=== PATIENT | male | born 1940 | race Caucasian/White ===

== ENCOUNTER 2018-04-04 20:21 | Inpatient (IN) | payer MEDICARE ==
[~2018-04-04] VITALS: Ht 175.3 cm; Wt 83.0 kg
[2018-04-04 20:57] VITALS: BP 166/92; PULSE 100; RESP 20; TEMP 98.1; O2SAT 98
[2018-04-04 21:00] VITALS: PULSE 100
[2018-04-04] MEDS ORDERED: MAGNESIUM HYDROXIDE SUSP 30 ML CUP PO PRN (21:15)
[2018-04-04] MEDS ORDERED: ONDANSETRON HCL 4 MG/2 ML VIAL IV PUSH PRN (21:15)
[2018-04-04] MEDS ORDERED: ACETAMINOPHEN/HYDROcodone 325 MG/5 MG TAB PO PRN (21:45)
[2018-04-04] MEDS ORDERED: ACETAMINOPHEN 325 MG TAB PO PRN (21:45)
[2018-04-04 22:00] VITALS: PULSE 96
[2018-04-04] MEDS ORDERED: [UNRECOGNIZED DRUG - OTHER] INH SCH (22:00)
[2018-04-04 22:34] VITALS: O2SAT 98
[2018-04-04] MEDS: methylPREDNISolone SOD SUCC 40 MG/1 ML VIAL IV PUSH SCH (22:42)
[2018-04-04 23:00] VITALS: PULSE 90
[2018-04-04 23:23] VITALS: BP 150/90; PULSE 95; RESP 20; TEMP 98.1; O2SAT 99
[2018-04-04] MEDS: LEVOFLOXACIN 500 MG PREMIX INJ 100 ML IV SCH (23:57)
[2018-04-05] VITALS (12 sets, daily range): BP systolic 91–177; BP diastolic 56–96; PULSE 60–102; RESP 16–20; TEMP 97.2–98.9; O2SAT 96–100
[2018-04-05] MEDS: CEFEPIME 2000 MG/NS 100 ML IV SCH ×4 (01:29→09:38)
[2018-04-05 08:11] LABS: AUTOMATED NEUTROPHIL # 15.8 TH/MM3 (1.8-7.7); BASOPHIL # 0.1 TH/MM3 (0-0.2); BASOPHIL % 0.6 % (0.0-2.0); EOSINOPHIL # 0.1 TH/MM3 (0-0.4); EOSINOPHIL % 0.6 % (0.0-4.0); HEMATOCRIT 34.8 % (39.0-51.0); HEMOGLOBIN 11.5 GM/DL (13.0-17.0); LYMPH % 6.4 % (9.0-44.0); LYMPHOCYTE # 1.2 TH/MM3 (1.0-4.8); MEAN CELL VOLUME 93.4 FL (80.0-100.0); MEAN CORPUSCULAR HEMOGLOBIN 30.9 PG (27.0-34.0); MEAN CORPUSCULAR HGB CONC 33.1 % (32.0-36.0); MEAN PLATELET VOLUME 8.1 FL (7.0-11.0); MONO % 5.2 % (0.0-8.0); MONOCYTE # 0.9 TH/MM3 (0-0.9); NEUT % 87.2 % (16.0-70.0); PLATELET COUNT 377 TH/MM3 (150-450); RED BLOOD COUNT 3.72 MIL/MM3 (4.50-5.90); RED CELL DISTRIBUTION WIDTH 13.3 % (11.6-17.2); WHITE BLOOD COUNT 18.1 TH/MM3 (4.0-11.0)
[2018-04-05 08:11] LABS: PROTHROMBIN TIME - PATIENT 10.5 SEC (9.8-11.6)
[2018-04-05 08:18] LABS: ALBUMIN 2.5 GM/DL (3.4-5.0); ALT (GPT) 28 U/L (12-78); AST (GOT) 20 U/L (15-37); BICARBONATE 34.6 MEQ/L (21.0-32.0); CALCIUM 8.8 MG/DL (8.5-10.1); CHLORIDE 96 MEQ/L (98-107); CREATININE 0.62 MG/DL (0.60-1.30); GLOMERULAR FILTRATION RATE 126 ML/MIN (>89); GLUCOSE,RANDOM 79 MG/DL (74-106); SODIUM (NA) 138 MEQ/L (136-145)
[2018-04-05 08:20] LABS: ALKALINE PHOSPHATASE 114 U/L (45-117); TOTAL BILIRUBIN ADULT 0.2 MG/DL (0.2-1.0); TOTAL PROTEIN 6.9 GM/DL (6.4-8.2)
[2018-04-05 08:34] LABS: BLOOD UREA NITROGEN 15 MG/DL (7-18)
[2018-04-05] MEDS ORDERED: PANTOPRAZOLE SOD 40 MG DELAYED RELEASE TAB PO SCH (09:00)
[2018-04-05] MEDS: methylPREDNISolone SOD SUCC 40 MG/1 ML VIAL IV PUSH SCH ×2 (09:38→21:38)
[2018-04-05] MEDS: DOCUSATE SODIUM 100 MG CAP PO SCH ×2 (09:38→21:39)
[2018-04-05] MEDS: RESP: ALBUTEROL 2.5 MG/IPRATROPIUM 0.5 MG NEB (SCH) NEB ×2 (09:48→13:17)
[2018-04-05] MEDS: RESP: BUDESONIDE 0.5 MG/2 ML NEB NEB SCH ×2 (09:48→22:07)
--- NOTE | 2018-04-05 09:56 | RADRPT ---
EXAM DATE: 04/05/2018 9:27 AM EDT AGE/SEX: 77 years / Male INDICATIONS: Short of breath CLINICAL DATA: This is the patient's initial encounter. Patient reports that signs and symptoms have been present for 2 days and indicates a pain score of 0/10. MEDICAL/SURGICAL HISTORY: . Pleural effusion Cholecystectomy. left lobectomy COMPARISON: No prior [facility] exams available for comparison. FINDINGS: There are patchy parenchymal infiltrates in both lung hernandes, right greater than left. The re appears to be a right-sided pleural effusion. No significant left-sided pleural effusion. The hear t size is mildly enlarged. There is evidence of previous thoracic surgery especially on the left side . There is a left-sided PICC line in place. There is no pneumothorax. The bony structures are grossly intact. CONCLUSION: 1. There are patchy parenchymal infiltrates bilaterally, right greater than left. 2. There appears to be a moderate right-sided pleural effusion. Electronically signed by: Demian Gale MD 04/05/2018 9:55 AM EDT
[2018-04-05] MEDS ORDERED: PRED20 PO (10:51)
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
[2018-04-05] MEDS ORDERED: VECURONIUM BROMIDE 20 MG VIAL IV ONE (12:00)
[2018-04-05] MEDS ORDERED: LIDOCAINE HCL 1% PF 5 ML AMPULE OTHER ONE (12:00)
[2018-04-05] MEDS ORDERED: SUCCINYLCHOLINE CHLORIDE 200 MG/10 ML VIAL IV ONE (12:00)
[2018-04-05] MEDS ORDERED: MAGNESIUM SULFATE 1 GM/2 ML VIAL IV ONE (12:00)
[2018-04-05] MEDS ORDERED: ONDANSETRON HCL 4 MG/2 ML VIAL IV ONE (12:00)
[2018-04-05] MEDS ORDERED: PHENYLEPH/NS 1000 MCG/10 ML SYR IV ONE (12:00)
[2018-04-05] MEDS ORDERED: LIDOCAINE HCL 1% PF 5 ML SYRINGE OTHER ONE (12:00)
[2018-04-05] MEDS ORDERED: PHENYLEPHRINE HCL 10 MG/ML VIAL IV ONE (12:00)
[2018-04-05] MEDS ORDERED: SODIUM CHLOR 0.9% 250 ML INJ 250 ML IV ONE (12:00)
[2018-04-05] MEDS ORDERED: NORMOSOL R INJ 1,000 ML IV ONE (12:00)
[2018-04-05] MEDS ORDERED: HEPARIN SODIUM - SQ 10,000 UNITS/ML VIAL OTHER ONE (12:00)
[2018-04-05] MEDS ORDERED: SODIUM CHLORIDE 0.9% 20 ML VIAL IV ONE (12:00)
[2018-04-05] MEDS ORDERED: PROPOFOL 200 MG/20 ML AMP IV ONE (12:00)
[2018-04-05] MEDS ORDERED: ROCURONIUM INJ 50 MG/5 ML SYRINGE IV PUSH ONE (12:00)
[2018-04-05] MEDS ORDERED: SODIUM CHLORID 0.9% 500 ML INJ 500 ML IV ONE (12:00)
[2018-04-05] MEDS ORDERED: LACTATED RINGER'S 1000 ML IV PRN (12:15)
[2018-04-05] MEDS ORDERED: CHLORHEXIDINE GLUCONATE 2 % 1 PACK (2 CLOTHS) TOPICAL PRN (12:15)
[2018-04-05] MEDS ORDERED: POVIDONE IODINE 5% (ANTISEPSIS KIT) 4 APPLICATIONS EACH NARE PRN (12:15)
[2018-04-05] MEDS ORDERED: SODIUM CHLORID 0.9% 500 ML IV PRN (12:15)
[2018-04-05] MEDS ORDERED: ONDANSETRON ODT 4 MG TAB PO PRN (12:15)
[2018-04-05] MEDS ORDERED: METOPROLOL TARTRATE 25 MG TAB PO PRN (12:15)
[2018-04-05] MEDS ORDERED: SUGAMMADEX SODIUM 200 MG/2 ML VIAL IV PUSH ONE ×2 (12:54→15:59)
[2018-04-05] MEDS ORDERED: ACETAMINOPHEN 1000 MG/100 ML 100 ML IV ONE (12:55)
[2018-04-05] MEDS ORDERED: HYDROCORTISONE SOD SUCCINATE 100 MG VIAL ONE (13:08)
[2018-04-05] MEDS ORDERED: VANCOMYCIN HCL 1000 MG VIAL ONE (13:54)
[2018-04-05] MEDS ORDERED: SODIUM CHLOR 0.9% 250 ML INJ 250 ML ONE (13:55)
[2018-04-05] MEDS ORDERED: BUPIVACAINE LIPOSO PF 1.3% INJ 20 ML, DEXAMETHASONE INJ 4 MG, MORPHINE INJ 8 MG in SODI... IRRIGATION ONE ×8 (14:00)
[2018-04-05] MEDS ORDERED: ACETAMINOPHEN 325 MG TAB PO PRN (16:00)
[2018-04-05] MEDS ORDERED: ONDANSETRON HCL 4 MG/2 ML VIAL IV PUSH PRN (16:00)
[2018-04-05] MEDS ORDERED: SODIUM CHLORIDE 0.9% FLUSH 10 ML FLUSH IV FLUSH PRN (16:00)
[2018-04-05] MEDS: RESP: ALBUTEROL 2.5 MG/3 ML NEB (SCH) NEB ×2 (16:00→22:01)
[2018-04-05] MEDS ORDERED: MORPHINE SULFATE 30 MG/30 ML PCA IV SCH (16:00)
[2018-04-05] MEDS ORDERED: NALOXONE HCL 0.4 MG/ML AMP IV PUSH PRN (16:00)
[2018-04-05] MEDS ORDERED: MAGNESIUM HYDROXIDE SUSP 30 ML CUP PO PRN (16:00)
[2018-04-05] MEDS ORDERED: Post-op Orders (for Pharmacy) OTHER ONE (16:00)
--- NOTE | 2018-04-05 16:02 | EKG ---
Date Performed: 04/05/2018 Time Performed: 12:11:26 PTAGE: 77 years EKG: SINUS TACHYCARDIA WITH OCCASIONAL VENTRICULAR PREMATURE COMPLEXES MODERATE ST DEPRESSION AB NORMAL ECG NO PREVIOUS TRACING DOCTOR: Hollis Jackson Interpretating Date/Time 04/05/2018 16:00:35
[2018-04-05] MEDS ORDERED: RESP: ALBUTEROL CONC 2.5 MG/0.5 ML NEB ONE (16:14)
--- NOTE | 2018-04-05 16:55 | PD.OP ---
cc: Seven Murdock MD; Theresa Lau MD Operative Report Date of Surgery: April 05, 2018 Preoperative Diagnosis: Postoperative Diagnosis: Procedure: 1. Right Muscle-sparing Posterolateral Thoracotomy 2. Localized Decortication 3. Biopsy of Peel 4. Intercostal Nerve Block Surgeon: Seven Murdock Ship Officer(s): Dennise Leone Operation and Findings: PREOPERATIVE DIAGNOSIS 1. Right Organized Empyema 2. Pulmonary Insufficiency 3. Pneumonia 4. Rheumatoid arthritis POSTOPERATIVE DIAGNOSIS 1. Right Malignant Empyema 2. Severe Pulmonary Insufficiency PROCEDURES 1. Right Muscle-sparing Posterolateral Thoracotomy 2. Localized Decortication 3. Biopsy of Peel 4. Intercostal Nerve Block SURGEON Seven Murdock MD LINE CLEARANCE FOREMAN AFSHIN Chanel ANESTHESIA General endotracheal. DECORATING MACHINE TENDER JOE Han MD OPERATIVE TIME Please see record. COMPLICATIONS None. INDICATION FOR PROCEDURE The patient is a 77 yo gentleman with right empyema presenting for surgical correction of above pathology. DESCRIPTION OF PROCEDURE The patient was brought to the operating suite and placed in supine position. Following satisfactory induction of general double-lumen endotracheal anesthesia , the patient was placed in the left lateral decubitus position. The right chest and surrounding area was then prepped and draped in the usual sterile fashion. A standard muscle-sparing posterolateral thoracotomy was performed and the serratus anterior muscle spared. The pleural space was entered. Small amount of clear fluid was encountered which was sent for analysis. Exploration of the chest revealed a stage IV Empyema with a thick peel encasing the lung as well as the parietal pleura. The peel was very densely adherent to the visceral pleura and the underlying lung. Additional loculated abscess cavities were also identified within the thoracic cavity. All loculations and fluid pockets were evacuated. Localized decortication was performed and the peel sent for histological and microbiological analysis. 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 At this point, it was decided to cease any further attempts at decorticating a malignant empyema for fear of creating underlying lung injury and bronchopleural fistulae. The closure was undertaken. A 32-Citizen [place] chest tube was placed. Intercostal nerve block was performed at the level of the incision and 3 rib spaces above and below using Exparel with Decadron solution. The pericostal space was approximated with interrupted #1 Vicryl sutures in a pericostal fashion. The serratus and Latissimus dorsi were closed with running 0-Vicryl and the remaining wounds closed with 3-0, and 4-0 Monocryl. The patient tolerated the procedure well and postoperatively went to the PACU in stable condition. Seven Murdock MD April 05, 2018 16:55
[2018-04-05] MEDS ORDERED: PROPOFOL 1000 MG/100 ML INJ 100 ML ONE (16:56)
[2018-04-05] MEDS ORDERED: PHENYTOIN SODIUM 100 MG CAP PO SCH (17:00)
[2018-04-05] MEDS: KETOROLAC TROMETHAMINE 30 MG/ML (IVP) VIAL IV PUSH SCH ×2 (17:00→23:08)
[2018-04-05] MEDS ORDERED: DO NOT ADM ANY ANTICOAGULANT DRUGS PRN (17:30)
[2018-04-05] MEDS ORDERED: *morphine SULFATE 8 MG/ML PERIprocedure ONLY ONE (17:34)
[2018-04-05] MEDS ORDERED: PROPOFOL 1000 MG/100 ML IV PRN (17:45)
[2018-04-05] MEDS ORDERED: TERBUTALINE INJ 1 MG/ML AMP SQ PRN (18:00)
--- NOTE | 2018-04-05 18:50 | RADRPT ---
EXAM DATE: 04/05/2018 6:43 PM EDT AGE/SEX: 77 years / Male INDICATIONS: Status post thoracotomy. CLINICAL DATA: This is the patient's initial encounter. Patient reports that signs and symptoms have been present for 1 day and indicates a pain score of Nonresponsive. MEDICAL/SURGICAL HISTORY: Non-responsive. Non-responsive. COMPARISON: No prior [facility] exams available for comparison. FINDINGS: The ET tube is 2.7 cm from the malcom. There is a PICC line placed from the left arm with the tip overlying the right atrium. There is a right chest tube in place. There is a moderate right p leural effusion. The heart size is enlarged. This increased density at the bases bilaterally. Clips a re seen in the left hilar region. CONCLUSION: Clips in the left hilar region. 1. Bibasilar areas of consolidation or atelectasis. 2. Moderate right pleural effusion with a right-sided chest tube in place. A pneumothorax is not see n. 3. ET tube in good position. Electronically signed by: Hermilo Moreira MD 04/05/2018 6:49 PM EDT
[2018-04-05] MEDS: PHENYLEPHRINE 40 MG in D5W 500 ML IV PRN (19:00)
--- NOTE | 2018-04-05 19:38 | PD.CONS ---
HPI Service Critical Care Medicine Consult Requested By Primary Care Physician Non-Staff History of Present Illness 77-year-old gentleman with history of rheumatoid arthritis, COPD, seizure disorder, recurrent pneumonias and now organized empyema on the right side underwent posterolateral thoracotomy and localized decortication with biopsy of peel by Dr. Murdock. Postprocedure patient remains intubated and is admitted to critical care unit with postprocedure respiratory failure. The routine critical care consult was placed for ventilatory management. Review of Systems ROS Unable to obtain patient sedated and intubated Past Family Social History Allergies: Coded Allergies: No Known Allergies (Unverified , 04/04/18) Past Medical History Rheumatoid arthritis COPD on home O2 Recurrent pneumonias Seizure disorder DVT GERD Past Surgical History Left upper lobectomy in 2005 in [place], [place]. Cholecystectomy Reported Medications Reported Meds & Active Scripts Active Reported Prednisone 20 Mg Tab 20 Mg PO DAILY Active Ordered Medications Current Medications Medications (Trade) Dose Ordered Sig/Shahrzad Route PRN Reason Start Time Stop Time Status Last Admin Dose Admin Docusate Sodium (Colace) 100 mg BID PO 04/05/18 09:00 04/05/18 09:38 Acetaminophen (Tylenol) 650 mg Q6H PRN PO PAIN SCALE 1 TO 2 04/04/18 21:45 Acetaminophen/ Hydrocodone Bitart (Somers 5-325 Mg) 1 tab Q4H PRN PO PAIN SCALE 3 TO 5 04/04/18 21:45 Budesonide (Pulmicort Respule Neb) 0.5 mg Q12HR NEB NEB 04/05/18 08:00 04/05/18 09:48 Methylprednisolone Sodium Succinate (SoluMEDROL INJ) 40 mg Q12H IV PUSH 04/04/18 22:00 04/05/18 09:38 Phenytoin (Dilantin) 200 mg DAILY@1700 PO 04/05/18 17:00 Patient Own Medication PT OWN MED: BROV... Q12H INH 04/04/18 22:00 Future Hold Cefepime HCl 2000 mg/Sodium Chloride 100 ml @ 200 mls/hr Q8H IV 04/05/18 00:00 04/06/18 00:00 04/05/18 09:38 Levofloxacin/ Dextrose 100 ml @ 100 mls/hr Q24H IV 04/04/18 23:00 5/22/18 23:59 04/04/18 23:57 Ondansetron HCl (Zofran Odt) 4 mg Q6H PRN PO NAUSEA OR VOMITING 04/05/18 12:15 Lactated Ringer's 1,000 ml @ 30 mls/hr Q24H PRN IV SEE LABEL COMMENTS 04/05/18 12:15 04/08/18 12:14 Sodium Chloride 500 ml @ 30 mls/hr [id number] PRN IV SEE LABEL COMMENTS 04/05/18 12:15 04/08/18 12:14 Metoprolol Tartrate (Lopressor) 25 mg CABLE TELEVISION ACCESS COORDINATOR PRN PO SEE LABEL COMMENTS 04/05/18 12:15 04/08/18 12:14 Povidone Iodine (Betadine 5% Antisepsis Kit) 1 applic CABLE TELEVISION ACCESS COORDINATOR PRN EACH NARE SEE LABEL COMMENTS 04/05/18 12:15 04/08/18 12:14 Chlorhexidine Gluconate (Chlorhexidine 2% Cloth) 3 pack CABLE TELEVISION ACCESS COORDINATOR PRN TOPICAL SEE LABEL COMMENTS 04/05/18 12:15 04/08/18 12:14 Albuterol Sulfate (Albuterol Neb) 2.5 mg Q6HR NEB NEB 04/05/18 16:00 Albuterol Sulfate (Albuterol Neb) 2.5 mg Q2HR NEB PRN NEB WHEEZING 04/05/18 16:00 Sodium Chloride (NS Flush) 2 ml BID IV FLUSH 04/05/18 21:00 Sodium Chloride (NS Flush) 2 ml UNSCH PRN IV FLUSH FLUSH AFTER USING IV ACCESS 04/05/18 16:00 Pantoprazole Sodium (Protonix) 40 mg HS PO 04/05/18 21:00 Ondansetron HCl (Zofran Inj) 4 mg Q6H PRN IV PUSH NAUSEA OR VOMITING 04/05/18 16:00 Docusate Calcium (Surfak) 240 mg HS PO 04/05/18 21:00 Magnesium Hydroxide (Milk Of Magnesia Liq) 30 ml DAILY PRN PO CONSTIPATION 04/05/18 16:00 Acetaminophen (Tylenol) 650 mg Q4H PRN PO TEMPERATURE > 101 F 04/05/18 16:00 Oxycodone/ Acetaminophen (Percocet 5-325 Mg) 1 tab Q3H PRN PO PAIN SCALE 3 TO 5 04/05/18 16:00 Oxycodone/ Acetaminophen (Percocet 5-325 Mg) 2 tab Q3H PRN PO PAIN SCALE 6 TO 10 04/05/18 16:00 Acetaminophen 100 ml @ 400 mls/hr Q6H IV 04/05/18 20:00 04/06/18 14:14 Ketorolac Tromethamine (Toradol Inj) 15 mg Q6H IV PUSH 04/05/18 17:00 04/06/18 11:01 04/05/18 17:00 Naloxone HCl (Narcan Inj) 0.4 mg UNSCH PRN IV PUSH RESPIRATORY RATE LESS THAN 10 04/05/18 16:00 Morphine Sulfate (Morphine 1 Mg/ ml MANAGER DOMESTIC) 30 mg UNSCH IV 04/05/18 16:00 MANAGER DOMESTIC Dosage Infused (Pha) 1 Q8HR .XX 04/05/18 22:00 Miscellaneous Information ([facility] Nursing Information) ALL NURSING DEPARTME... UNSCH PRN .XX SEE LABEL COMMENTS 04/05/18 17:30 04/06/18 17:29 Propofol 100 ml @ 2.49 mls/hr TITRATE PRN IV SEDATION 04/05/18 17:45 Phenylephrine HCl 40 mg/Dextrose 500 ml @ 30 mls/hr TITRATE PRN IV Blood Pressure Management 04/05/18 18:00 Terbutaline Sulfate (Brethine Inj) 1 mg UNSCH PRN SQ FOR EXTRAVASATION PROTOCOL 04/05/18 18:00 Family History Mother from lymphoma. Father had a ruptured aorta. 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 No alcohol. Physical Exam Vital Signs Vital Signs Date Time Temp Pulse Resp B/P (MAP) Pulse Ox O2 Delivery O2 Flow Rate FiO2 04/05/18 18:45 100 100 04/05/18 16:55 99 60 04/05/18 12:00 97.9 70 16 128/59 (82) 96 04/05/18 09:49 98 Simple Mask 6.00 04/05/18 08:00 97.2 102 20 177/74 (108) 98 04/05/18 04:29 98.9 100 20 153/89 (110) 99 04/05/18 00:33 97.2 98 20 159/96 (117) 96 04/04/18 23:23 98.1 95 20 150/90 (110) 99 04/04/18 23:00 90 04/04/18 22:34 98 Simple Mask 7.00 04/04/18 22:00 96 04/04/18 21:00 100 04/04/18 20:57 98.1 100 20 166/92 (116) 98 Physical Exam GENERAL: Well-nourished, well-developed patient. Sedated and intubated SKIN: Warm and dry. HEAD: Normocephalic. EYES: No scleral icterus. No injection or drainage. NECK: Supple, trachea midline. No JVD or lymphadenopathy. CARDIOVASCULAR: Regular rate and rhythm without murmurs, gallops, or rubs. RESPIRATORY: Breath sounds equal bilaterally. No accessory muscle use. GASTROINTESTINAL: Abdomen soft, non-tender, nondistended. MUSCULOSKELETAL: No cyanosis, or edema. BACK: Nontender without obvious deformity. NEURO EXAM: Patient is sedated and intubated Laboratory Laboratory Tests Test 04/05/18 07:25 04/05/18 07:30 04/05/18 07:38 04/05/18 18:27 Prothrombin Time 10.5 Prothromb Time International Ratio 1.0 White Blood Count 18.1 Red Blood Count 3.72 Hemoglobin 11.5 Hematocrit 34.8 Mean Corpuscular Volume 93.4 Mean Corpuscular Hemoglobin 30.9 Mean Corpuscular Hemoglobin Concent 33.1 Red Cell Distribution Width 13.3 Platelet Count 377 Mean Platelet Volume 8.1 Neutrophils (%) (Auto) 87.2 Lymphocytes (%) (Auto) 6.4 Monocytes (%) (Auto) 5.2 Eosinophils (%) (Auto) 0.6 Basophils (%) (Auto) 0.6 Neutrophils # (Auto) 15.8 Lymphocytes # (Auto) 1.2 Monocytes # (Auto) 0.9 Eosinophils # (Auto) 0.1 Basophils # (Auto) 0.1 CBC Comment DIFF FINAL Differential Comment Blood Urea Nitrogen 15 Creatinine 0.62 Random Glucose 79 Total Protein 6.9 Albumin 2.5 Calcium Level 8.8 Alkaline Phosphatase 114 Aspartate Amino Transf (AST/SGOT) 20 Alanine Aminotransferase (ALT/SGPT) 28 Total Bilirubin 0.2 Sodium Level 138 Potassium Level 4.2 Chloride Level 96 Carbon Dioxide Level 34.6 Anion Gap 7 Estimat Glomerular Filtration Rate 126 Blood Gas Puncture Site ART LINE Blood Gas Patient Temperature 98.6 Blood Gas HCO3 25 Blood Gas Base Excess 0.2 Blood Gas Oxygen Saturation 97 Arterial Blood pH 7.35 Arterial Blood Partial Pressure CO2 47 Arterial Blood Partial Pressure O2 201 Arterial Blood Oxygen Content 15.7 Arterial Blood Carboxyhemoglobin 1.0 Arterial Blood Methemoglobin 1.5 Blood Gas Hemoglobin 11.2 Oxygen Delivery Device VENTILATOR Blood Gas Ventilator Setting PRVC/AC Blood Gas Inspired Oxygen 60 Date/Time Source Procedure Growth Status 04/05/18 14:30 Fluid Other Fungal Smear Pending Received 04/05/18 14:30 Fluid Other Fungal Culture Pending Received Result Diagram: 04/05/18 0730 04/05/18 0738 Imaging Last 24 hours Impressions Chest X-Ray 04/05/18 2152 Signed Impressions: CONCLUSION: Chest X-Ray 04/05/18 0000 Signed Impressions: CONCLUSION: Clips in the left hilar region. Septic Shock Reassessment Septic shock perfusion: reassessment completed Assessment and Plan Assessment and Plan Respiratory failure -Postoperative -Unclear why patient remains intubated postprocedure -No appropriate documentation in chart -CXR and ABG daily while intubated -SBT's a.m. Empyema -Cefepime -Levaquin -Status post decortication -Further management per CT surgeon COPD -DuoNeb scheduled and as needed -Solu-Medrol -Pulmicort GERD -Pantoprazole Seizure disorder -Dilantin History of DVT -Eliquis on hold for surgical procedure -Resume when okay with surgeon DVT GI prophylaxis -Loyd's and SCDs -Pharmacological DVT prophylaxis per surgeon -Pantoprazole Critical Care: The total critical care time was 35 minutes. Time to perform other separately billable procedures was not included in the critical care time. Kyle Valle MD April 05, 2018 19:38
[2018-04-05] MEDS ORDERED: DOCUSATE CALCIUM 240 MG CAP PO SCH (21:00)
[2018-04-05] MEDS: ACETAMINOPHEN 1000 MG/100 ML 100 ML IV SCH (21:39)
[2018-04-05] MEDS: SODIUM CHLORIDE 0.9% FLUSH 10 ML FLUSH IV FLUSH SCH (21:39)
[2018-04-05] MEDS: PANTOPRAZOLE SOD 40 MG DELAYED RELEASE TAB PO SCH (21:39)
[2018-04-05] MEDS: PCA - TOTAL MG MORPHINE DELIVERED PER SHIFT SCH (21:40)
[2018-04-05] MEDS: LEVOFLOXACIN 500 MG PREMIX INJ 100 ML IV SCH (23:07)
[2018-04-06] VITALS (17 sets, daily range): BP systolic 95–159; BP diastolic 54–77; PULSE 57–117; RESP 16–24; TEMP 97.7–98.4; O2SAT 95–98
[2018-04-06] MEDS: CEFEPIME 2000 MG/NS 100 ML IV SCH ×2
[2018-04-06] MEDS: ACETAMINOPHEN 1000 MG/100 ML 100 ML IV SCH ×3 (03:16→16:19)
[2018-04-06] MEDS: RESP: ALBUTEROL 2.5 MG/3 ML NEB (SCH) NEB ×4 (04:38→22:00)
--- NOTE | 2018-04-06 04:50 | RADRPT ---
EXAM DATE: 04/06/2018 4:44 AM EDT AGE/SEX: 77 years / Male INDICATIONS: Short of breath. CLINICAL DATA: This is the patient's subsequent encounter. Patient reports that signs and symptoms h ave been present for 1 week and indicates a pain score of 0/10. MEDICAL/SURGICAL HISTORY: None. None. [place] [facility] [place]. . FINDINGS: A single portable semierect view of the chest was obtained and demonstrates the endotracheal tube rem aining in place with the tip approximately 2 cm above the malcom. The left-sided PICC line remains in place. There is a right-sided chest tube in place with no pneumothorax. Right pleural fluid remains along the lateral chest wall. The right costophrenic angle remains blunted. There is patchy opacity i n both lung bases right greater than left. Postoperative changes and scarring are present in the left perihilar region. The heart size remains moderately enlarged. CONCLUSION: 1. No significant change. The right-sided chest tube remains in place with apparent loculated fluid. 2. Moderate cardiomegaly. There is abnormal opacity remaining at the lung bases. Electronically signed by: Ruben Malin MD 04/06/2018 4:49 AM EDT
[2018-04-06] MEDS: KETOROLAC TROMETHAMINE 30 MG/ML (IVP) VIAL IV PUSH SCH ×2 (05:00→10:49)
[2018-04-06 05:07] LABS: AUTOMATED NEUTROPHIL # 20.2 TH/MM3 (1.8-7.7); BASOPHIL # 0.1 TH/MM3 (0-0.2); BASOPHIL % 0.5 % (0.0-2.0); EOSINOPHIL # 0.1 TH/MM3 (0-0.4); EOSINOPHIL % 0.4 % (0.0-4.0); HEMATOCRIT 30.5 % (39.0-51.0); HEMOGLOBIN 10.2 GM/DL (13.0-17.0); LYMPHOCYTE # 1.1 TH/MM3 (1.0-4.8); MEAN CELL VOLUME 92.3 FL (80.0-100.0); MEAN CORPUSCULAR HEMOGLOBIN 30.7 PG (27.0-34.0); MEAN CORPUSCULAR HGB CONC 33.3 % (32.0-36.0); MEAN PLATELET VOLUME 8.4 FL (7.0-11.0); MONO % 3.9 % (0.0-8.0); MONOCYTE # 0.9 TH/MM3 (0-0.9); NEUT % 90.2 % (16.0-70.0); PLATELET COUNT 433 TH/MM3 (150-450); RED BLOOD COUNT 3.31 MIL/MM3 (4.50-5.90); RED CELL DISTRIBUTION WIDTH 13.5 % (11.6-17.2); WHITE BLOOD COUNT 22.4 TH/MM3 (4.0-11.0)
[2018-04-06 05:37] LABS: BICARBONATE 30.9 MEQ/L (21.0-32.0); CALCIUM 8.4 MG/DL (8.5-10.1); CREATININE 0.85 MG/DL (0.60-1.30)
[2018-04-06] MEDS: PCA - TOTAL MG MORPHINE DELIVERED PER SHIFT SCH ×3 (05:58→22:00)
[2018-04-06] MEDS: methylPREDNISolone SOD SUCC 40 MG/1 ML VIAL IV PUSH SCH ×2 (08:18→22:18)
[2018-04-06] MEDS: DOCUSATE SODIUM 100 MG CAP PO SCH ×2 (08:19→21:00)
[2018-04-06] MEDS: SODIUM CHLORIDE 0.9% FLUSH 10 ML FLUSH IV FLUSH SCH ×2 (08:19→22:18)
[2018-04-06] MEDS: PHENYLEPHRINE 40 MG in D5W 500 ML IV PRN (08:20)
[2018-04-06] MEDS: RESP: BUDESONIDE 0.5 MG/2 ML NEB NEB SCH ×2 (08:21→22:00)
--- NOTE | 2018-04-06 08:26 | HHI.CCPN ---
Subjective Remarks/Hospital Course Hospital Course: 77-year-old gentleman with history of rheumatoid arthritis, COPD, seizure disorder, recurrent pneumonias and now organized empyema on the right side underwent posterolateral thoracotomy and localized decortication with biopsy of peel by Dr. Murdock. Postprocedure patient remains intubated and is admitted to critical care unit with postprocedure respiratory failure. The routine critical care consult was placed for ventilatory management. subjective: 04/06: clinically improving. follows commands. on SBT this AM. denies pain complaints. ROS limited by intubation, but appears to be negative. Objective Vital Signs Date Time Temp Pulse Resp B/P (MAP) Pulse Ox O2 Delivery O2 Flow Rate FiO2 04/06/18 08:00 98.0 65 16 100/66 (77) 98 116/54 (74) 04/06/18 07:57 40 04/05/18 18:50 Mechanical Ventilator 04/05/18 09:49 6.00 Intake and Output 04/06/18 04/06/18 04/07/18 08:00 16:00 00:00 Output Total 710 ml Balance -710 ml Result Diagram: 04/06/18 0423 04/06/18 0423 Other Results Laboratory Tests Test 04/05/18 18:27 Blood Gas Puncture Site ART LINE Blood Gas Patient Temperature 98.6 Blood Gas HCO3 25 mmol/L (22-26) Blood Gas Base Excess 0.2 mmol/L (-2-2) Blood Gas Oxygen Saturation 97 % (90-100) Arterial Blood pH 7.35 (7.380-7.420) Arterial Blood Partial Pressure CO2 47 mmHg (38-42) Arterial Blood Partial Pressure O2 201 mmHg (61-120) Arterial Blood Oxygen Content 15.7 Vol % (12.0-20.0) Arterial Blood Carboxyhemoglobin 1.0 % (0-4) Arterial Blood Methemoglobin 1.5 % (0-2) Blood Gas Hemoglobin 11.2 G/DL (12.0-16.0) Oxygen Delivery Device VENTILATOR Blood Gas Ventilator Setting PRVC/AC Blood Gas Inspired Oxygen 60 % Imaging Last 24 hours Impressions Chest X-Ray 04/05/18 2152 Signed Impressions: CONCLUSION: Chest X-Ray 04/05/18 0000 Signed Impressions: CONCLUSION: Clips in the left hilar region. Objective Remarks GENERAL: elderly male, lying in bed, intubated, sedated but arousable. SKIN: Warm and dry. HEAD: Normocephalic. EYES: No scleral icterus. No injection or drainage. NECK: Supple, trachea midline. No JVD CARDIOVASCULAR: Regular rate and rhythm. sinus. RESPIRATORY: equal chest rise. psv mode of ventilation. fio2 40%. right chest tube to suction, minimal sanguinous output. no air leak. GASTROINTESTINAL: Abdomen soft, non-tender, nondistended. MUSCULOSKELETAL: No cyanosis, or edema. NEURO EXAM: RASS -1. follows commands. no focal deficits. A/P Assessment and Plan Assessment: 77yM POD 1 s/p right thoracotomy for empyema, clinically improving. will work towards extubation today. minimize ivf. adequate pain control. Post-operative pulmonary insufficiency- improving - wean to extubate - i.s. and pulmonary toilet - prn nebs - wean o2 for goal spo2 > 90% - CT to suction: management per CT surgery. Empyema s/p right thoracotomy and decortication 04/05 -Cefepime -Levaquin -Status post decortication -Further management per CT surgeon COPD -DuoNeb scheduled and as needed -Solu-Medrol -Pulmicort GERD -Pantoprazole Seizure disorder -Dilantin History of DVT -Eliquis on hold for surgical procedure -Resume when okay with surgeon DVT GI prophylaxis -Loyd's and SCDs -Pharmacological DVT prophylaxis per surgeon -Pantoprazole Dispo: remain in ICU. if he is extubated and remains stable, could transfer out late today. Critical care medicine will continue to follow while patient is in CVICU. Abhijit Mcdaniels MD April 06, 2018 08:26
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
[2018-04-06] MEDS: oxyCODONE/ACETAMINOPHEN 5 MG/325 MG TAB PO PRN ×2 (17:05→22:24)
[2018-04-06] MEDS: DILANTIN 100 MG PO SCH (17:27)
[2018-04-06] MEDS: PANTOPRAZOLE SOD 40 MG DELAYED RELEASE TAB PO SCH (22:18)
[2018-04-07] VITALS (8 sets, daily range): BP systolic 117–149; BP diastolic 72–89; PULSE 94–112; RESP 20–24; TEMP 98–99; O2SAT 91–99
[2018-04-07] MEDS: oxyCODONE/ACETAMINOPHEN 5 MG/325 MG TAB PO PRN ×5 (03:36→20:46)
[2018-04-07] MEDS: RESP: ALBUTEROL 2.5 MG/3 ML NEB (SCH) NEB ×4 (04:12→22:53)
[2018-04-07] MEDS: PCA - TOTAL MG MORPHINE DELIVERED PER SHIFT SCH ×4 (06:00→22:00)
[2018-04-07] MEDS: METOPROLOL TARTRATE 25 MG TAB PO SCH ×2 (09:31→20:45)
[2018-04-07] MEDS: methylPREDNISolone SOD SUCC 40 MG/1 ML VIAL IV PUSH SCH (09:31)
[2018-04-07] MEDS: DOCUSATE SODIUM 100 MG CAP PO SCH ×2 (09:31→20:47)
[2018-04-07] MEDS: SODIUM CHLORIDE 0.9% FLUSH 10 ML FLUSH IV FLUSH SCH ×2 (09:32→20:46)
--- NOTE | 2018-04-07 10:07 | HHI.CCPN ---
Subjective Remarks/Hospital Course Hospital Course: 77-year-old gentleman with history of rheumatoid arthritis, COPD, seizure disorder, recurrent pneumonias and now organized empyema on the right side underwent posterolateral thoracotomy and localized decortication with biopsy of peel by Dr. Murdock. Postprocedure patient remains intubated and is admitted to critical care unit with postprocedure respiratory failure. The routine critical care consult was placed for ventilatory management. subjective: 04/06: clinically improving. follows commands. on SBT this AM. denies pain complaints. ROS limited by intubation, but appears to be negative. 04/07: Sitting up in chair breathing comfortably. Currently on partial nonrebreather oxygen saturation 98%, transition to 50% Ventimask with maintaining oxygen saturation above 94%. Chest tube with 135 mL output in 24 hours Objective Vital Signs Date Time Temp Pulse Resp B/P (MAP) Pulse Ox O2 Delivery O2 Flow Rate FiO2 04/07/18 09:26 98 Partial Rebreather 12.00 04/07/18 07:00 98.6 110 20 126/75 (92) 146/73 (97) 04/06/18 10:50 40 Intake and Output 04/07/18 04/07/18 04/08/18 08:00 16:00 00:00 Intake Total 480 ml Output Total 910 ml Balance -430 ml Result Diagram: 04/06/18 0423 04/06/18 0423 Imaging Last 24 hours Impressions Chest X-Ray 04/05/18 2152 Signed Impressions: CONCLUSION: Chest X-Ray 04/05/18 0000 Signed Impressions: CONCLUSION: Clips in the left hilar region. Objective Remarks GENERAL: elderly male, sitting up in chair breathing comfortably SKIN: Warm and dry. HEAD: Normocephalic. EYES: No scleral icterus. No injection or drainage. NECK: Supple, trachea midline. No JVD CARDIOVASCULAR: Sinus tachycardia, mildly hypotensive RESPIRATORY: Air entry equal bilaterally no wheezes. VM 50%. right chest tube to suction, 135 ml in 24 hours GASTROINTESTINAL: Abdomen soft, non-tender, nondistended. MUSCULOSKELETAL: No cyanosis, or edema. NEURO EXAM: Alert awake and oriented 3 no focal deficits A/P Assessment and Plan Assessment: 77yM POD 2 s/p right thoracotomy for empyema, clinically improving. Extubated yesterday 04/06/2018 tolerating well Post-operative pulmonary insufficiency- improving - Extubated 04/06/18, tolerating well - i.s. and pulmonary toilet. Add EzPAP - prn nebs - wean o2 for goal spo2 > 90% - CT to suction: management per CT surgery. Empyema s/p right thoracotomy and decortication 04/05 -Cefepime, Levaquin -Status post decortication, cultures negative today -Further management per CT surgeon COPD -DuoNeb scheduled and as needed -Solu-Medrol -Pulmicort GERD -Pantoprazole Seizure disorder -Dilantin History of DVT -Eliquis on hold for surgical procedure -Resume when okay with surgeon DVT GI prophylaxis -Loyd's and SCDs -Pharmacological DVT prophylaxis per surgeon -Pantoprazole Dispo: Okay to transfer from ICU to CPCU. CCM will sign off. Reconsult as needed Level 2 Omid Akhtar MD April 07, 2018 10:07
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
[2018-04-07] MEDS: DILANTIN 100 MG PO SCH (17:23)
[2018-04-07 18:05] LABS: HEMATOCRIT 34.6 % (39.0-51.0); HEMOGLOBIN 11.3 GM/DL (13.0-17.0); MEAN CELL VOLUME 94.5 FL (80.0-100.0); MEAN CORPUSCULAR HEMOGLOBIN 30.8 PG (27.0-34.0); MEAN CORPUSCULAR HGB CONC 32.6 % (32.0-36.0); MEAN PLATELET VOLUME 8.3 FL (7.0-11.0); PLATELET COUNT 301 TH/MM3 (150-450); RED BLOOD COUNT 3.66 MIL/MM3 (4.50-5.90); RED CELL DISTRIBUTION WIDTH 13.7 % (11.6-17.2)
[2018-04-07 18:20] LABS: BICARBONATE 33.2 MEQ/L (21.0-32.0); CALCIUM 8.7 MG/DL (8.5-10.1); CREATININE 0.84 MG/DL (0.60-1.30); MAGNESIUM 2.3 MG/DL (1.5-2.5)
[2018-04-07] MEDS: PANTOPRAZOLE SOD 40 MG DELAYED RELEASE TAB PO SCH (20:45)
[2018-04-07] MEDS: RESP: BUDESONIDE 0.5 MG/2 ML NEB NEB SCH (22:54)
[2018-04-08] VITALS (8 sets, daily range): BP systolic 116–135; BP diastolic 74–91; PULSE 94–110; RESP 18–24; TEMP 97.5–98.4; O2SAT 92–99
[2018-04-08] MEDS: oxyCODONE/ACETAMINOPHEN 5 MG/325 MG TAB PO PRN ×6 (03:22→20:58)
[2018-04-08] MEDS: RESP: ALBUTEROL 2.5 MG/3 ML NEB (SCH) NEB ×4 (04:09→21:36)
[2018-04-08] MEDS: PCA - TOTAL MG MORPHINE DELIVERED PER SHIFT SCH ×3 (06:00→22:00)
[2018-04-08] MEDS: DOCUSATE SODIUM 100 MG CAP PO SCH ×2 (08:41→20:58)
[2018-04-08] MEDS: METOPROLOL TARTRATE 25 MG TAB PO SCH (08:41)
[2018-04-08] MEDS: predniSONE 20 MG TAB PO SCH (08:41)
[2018-04-08] MEDS: ENOXAPARIN SODIUM 40 MG/0.4 ML SYRINGE SQ SCH (08:42)
[2018-04-08] MEDS: SODIUM CHLORIDE 0.9% FLUSH 10 ML FLUSH IV FLUSH SCH ×2 (08:42→20:58)
[2018-04-08] MEDS ORDERED: methylPREDNISolone SOD SUCC 40 MG/1 ML VIAL IV PUSH SCH (09:00)
[2018-04-08] MEDS: RESP: BUDESONIDE 0.5 MG/2 ML NEB NEB SCH ×2 (09:11→21:36)
[2018-04-08] MEDS: METOPROLOL TARTRATE 50 MG TAB PO SCH ×2 (10:04→20:58)
[2018-04-08] MEDS: RESP: ALBUTEROL 2.5 MG/3 ML NEB (PRN) NEB (14:01)
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
--- NOTE | 2018-04-08 15:32 | HHI.FF ---
Face to Face Verification Diagnosis: (1) Lung cancer (2) COPD (chronic obstructive pulmonary disease) (3) Hypoxemia (4) Seizure disorder (5) S/P thoracotomy Physical Therapy Order: Evaluate and Treat Home Health Nursing Order: Medication education-adverse effect Wound care and dressing changes Nursing assessment with vital signs Instructions: Incentive spirometry Q1 hr x 10, while awake, also use acapella device hourly whole Chest wall precautions: NO pushing or pulling, ( pt must use chest pillow support chest with all activities and with coughing Daily incision care: ok to shower ( 48hrs after chest tube removed) and then daily, no tub bath. Wash all incisions with liquid dial soap, clean wash cloth to each site, rinse and pat dry. Observe for any signs of infection, such as drainage which is dark yellow, flower, green or foul smelling. Immediately report to the surgeon any drainage from the chest incision, or legs, and for any abnormal drainage from the chest tube sites. Notify surgeon if any temp > 101.5 degrees F. When specialty dressing removed/ or if you do not have one, continue to shower daily as above, then rinse and pat incision dry and paint with betadine daily x 5 days. Allow steri strips to fall off if you have any. Avoid lotions, creams, salves, oils, etc. for the first month F/U appointment: as per [facility] instructions: PCP in 2 weeks, CV surgeon 2 weeks, Data Center Manager 3-4 weeks For any questions regarding incisions/ dressing / meds / post op care or above Symptoms, Wednesday 8am-5pm Heart & Vascular Surgery Office ( Dr. Murdock & Dr. Pena), After Hours / Nights (5pm -8am) Weekends and Holidays Please call [facility] ([facility]) Charge Nurse I have seen patient Ravi Ng on 04/08/18. My clinical findings support the need for the requested home health care services because: Patient has SOB Deconditioned w/ increased weakness I certify that my clinical findings support that this patient is homebound because: Post-op weakness Hx COPD- exertion dyspnea/weakness Rea Jarquin April 08, 2018 15:32
[2018-04-08] MEDS: DILANTIN 100 MG PO SCH (16:46)
[2018-04-08] MEDS: PANTOPRAZOLE SOD 40 MG DELAYED RELEASE TAB PO SCH (20:58)
[2018-04-09] VITALS (10 sets, daily range): BP systolic 106–158; BP diastolic 72–91; PULSE 95–128; RESP 18–24; TEMP 97.6–98.3; O2SAT 96–98
[2018-04-09] MEDS: oxyCODONE/ACETAMINOPHEN 5 MG/325 MG TAB PO PRN ×3 (00:58→20:21)
[2018-04-09] MEDS: RESP: ALBUTEROL 2.5 MG/3 ML NEB (SCH) NEB ×2 (02:10→09:41)
--- NOTE | 2018-04-09 04:45 | RADRPT ---
EXAM DATE: 04/09/2018 4:36 AM EDT AGE/SEX: 77 years / Male INDICATIONS: Shortness of breath. CLINICAL DATA: This is the patient's subsequent encounter. Patient reports that signs and symptoms h ave been present for 2 weeks and indicates a pain score of 1/10. MEDICAL/SURGICAL HISTORY: None. Cholecystectomy. Lobectomy. [place] [facility] [place]. . FINDINGS: Right greater than left parenchymal consolidation again noted and not significantly changed. There is a small right pleural effusion with considerable loculation laterally and also not significantly samir nged. No pneumothorax is demonstrated. Surgical changes again noted in the left hilum. Left arm PICC with tip in the superior vena cava unchanged. Patient has been extubated. CONCLUSION: No significant change patchy bilateral airspace opacities and small right pleural effusion. Endotrach eal tube out. Electronically signed by: Hermilo Mistry MD 04/09/2018 4:44 AM EDT
[2018-04-09] MEDS: PCA - TOTAL MG MORPHINE DELIVERED PER SHIFT SCH ×3 (06:00→20:23)
[2018-04-09] MEDS: SODIUM CHLORIDE 0.9% FLUSH 10 ML FLUSH IV FLUSH SCH ×2 (09:00→20:22)
[2018-04-09] MEDS: DOCUSATE SODIUM 100 MG CAP PO SCH ×2 (09:04→20:22)
[2018-04-09] MEDS: METOPROLOL TARTRATE 50 MG TAB PO SCH ×2 (09:04→20:21)
[2018-04-09] MEDS: predniSONE 20 MG TAB PO SCH (09:04)
[2018-04-09] MEDS: ENOXAPARIN SODIUM 40 MG/0.4 ML SYRINGE SQ SCH (09:04)
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
[2018-04-09] MEDS: RESP: BUDESONIDE 0.5 MG/2 ML NEB NEB SCH ×2 (09:42→21:49)
[2018-04-09] MEDS ORDERED: FUROSEMIDE 40 MG/4 ML VIAL IV PUSH ONE (09:45)
[2018-04-09 10:30] LABS: AUTOMATED NEUTROPHIL # 28.4 TH/MM3 (1.8-7.7); BASOPHIL # 0.1 TH/MM3 (0-0.2); BASOPHIL % 0.4 % (0.0-2.0); EOSINOPHIL # 0.3 TH/MM3 (0-0.4); HEMATOCRIT 32.6 % (39.0-51.0); HEMOGLOBIN 10.5 GM/DL (13.0-17.0); LYMPH % 1.5 % (9.0-44.0); LYMPHOCYTE # 0.5 TH/MM3 (1.0-4.8); MEAN CELL VOLUME 94.3 FL (80.0-100.0); MEAN CORPUSCULAR HEMOGLOBIN 30.3 PG (27.0-34.0); MEAN CORPUSCULAR HGB CONC 32.1 % (32.0-36.0); MEAN PLATELET VOLUME 8.6 FL (7.0-11.0); MONO % 4.8 % (0.0-8.0); MONOCYTE # 1.5 TH/MM3 (0-0.9); NEUT % 92.3 % (16.0-70.0); PLATELET COUNT 312 TH/MM3 (150-450); RED BLOOD COUNT 3.46 MIL/MM3 (4.50-5.90); RED CELL DISTRIBUTION WIDTH 13.8 % (11.6-17.2); WHITE BLOOD COUNT 30.8 TH/MM3 (4.0-11.0)
[2018-04-09 11:07] LABS: ALKALINE PHOSPHATASE 141 U/L (45-117); ALT (GPT) 24 U/L (12-78); AST (GOT) 19 U/L (15-37); BICARBONATE 36.3 MEQ/L (21.0-32.0); BLOOD UREA NITROGEN 21 MG/DL (7-18); CALCIUM 9.1 MG/DL (8.5-10.1); CHLORIDE 94 MEQ/L (98-107); CREATININE 0.79 MG/DL (0.60-1.30); GLOMERULAR FILTRATION RATE 96 ML/MIN (>89); GLUCOSE,RANDOM 116 MG/DL (74-106); SODIUM (NA) 136 MEQ/L (136-145); TOTAL BILIRUBIN ADULT 0.4 MG/DL (0.2-1.0); TOTAL PROTEIN 6.9 GM/DL (6.4-8.2)
--- NOTE | 2018-04-09 11:15 | PD.CONS ---
History of Present Illness Service Hematology/Oncology. Consult Requested By Cardiothoracic surgery Reason for Consult Right sided malignant empyema. 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 Primary Care Physician Non-Staff Diagnoses: History of Present Illness Chief Complaint: Mr. Ng reports difficulty breathing and right-sided chest pain. History of Presenting Illness: Mr. 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 The patient also reports having had a 4-pack-year history of smoking (smoked about a pack a day for 4 years in the ). The patient is originally from [place], [place], he moved to [facility] in 2010. The patient reports having had a history of rheumatoid arthritis, he had been on Humira for about 3 months but did not have a biochemical response to this treatment. Over this period time he had recurrent pneumonias on the right side with reaccumulating pleural effusions. The patient has been under the care of Dr. Lau of pulmonology and was recommended thoracotomy for management of a complicated pleural effusion/organized empyema. Procedure was performed on 04/[address] Murdock, intraoperative findings revealed malignant empyema with a very thick peel encasing the lung and parietal pleura, multiple pockets of loculated fluid were identified and these were evacuated as well. Biopsies of the thick peel overlying the right lung were submitted for pathologic review and preliminary/frozen sections indicated findings consistent with adenocarcinoma. The oncology service is been asked to see Mr. Ng for further workup and management. Review of Systems Constitutional: COMPLAINS OF: Diaphoretic episodes, Fatigue, DENIES: Fever, Weight gain, Weight loss, Chills, Dizziness, Change in appetite, Night Sweats Endocrine: DENIES: Heat/cold intolerance, Polydipsia, Polyuria, Polyphagia Eyes: DENIES: Blurred vision, Diplopia, Eye inflammation, Eye pain, Vision loss , Photosensitivity, Double Vision Ears, nose, mouth, throat: DENIES: Tinnitus, Hearing loss, Vertigo, Nasal discharge, Oral lesions, Throat pain, Hoarseness, Ear Pain, Running Nose, Epistaxis, Sinus Pain, Toothache, Odynophagia Respiratory: COMPLAINS OF: Cough, Sputum production, Shortness of breath, DENIES: Apneas, Snoring, Wheezing, Hemoptysis Cardiovascular: COMPLAINS OF: Chest pain, Palpitations, Dyspnea on Exertion, DENIES: Syncope, PND, Lower Extremity Edema, Orthopnea, Claudication Gastrointestinal: COMPLAINS OF: Anorexia, DENIES: Abdominal pain, Black stools , Bloody stools, Constipation, Diarrhea, Nausea, Vomiting, Difficulty Swallowing Genitourinary: DENIES: Sexual dysfunction, Urinary frequency, Urinary incontinence, Urgency, Hematuria, Dysuria, Nocturia, Penile Discharge, Testicular Pain, Testicular Swelling Musculoskeletal: DENIES: Joint pain, Muscle aches, Stiffness, Joint Swelling, Back pain, Neck pain Integumentary: DENIES: Abnormal pigmentation, Nail changes, Pruritus, Rash Hematologic/lymphatic: DENIES: Bruising, Lymphadenopathy Immunologic/allergic: DENIES: Eczema, Urticaria Neurologic: DENIES: Abnormal gait, Headache, Localized weakness, Paresthesias, Seizures, Speech Problems, Tremor, Poor Balance Psychiatric: COMPLAINS OF: Anxiety, DENIES: Confusion, Mood changes, Depression , Hallucinations, Agitation, Suicidal Ideation, Homicidal Ideation, Delusions Except as stated in HPI: all other systems reviewed are Neg Past Family Social History Allergies: Coded Allergies: No Known Allergies (Unverified , 04/04/18) Past Medical History Rheumatoid arthritis Reported exposure to asbestos Personal history of tobaccoism in the remote past Reported history of seizures in the remote past; he remains on antiepileptic therapy. Past Surgical History Cholecystectomy Left upper lobectomy 2005; reportedly benign Right knee cyst aspiration Right sided thoracotomy; March 2018 Active Ordered Medications Hydrocodone/acetaminophen 5/3.51 tablet p.o. every 4 hours Tylenol 650 mg p.o. every 6 hours needed for pain Albuterol nebulizer 2 mg nebulized every 6 hours Budesonide 0.5 mg nebulized every 12 hours. Colace 100 mg p.o. twice daily Lovenox 40 mg subcu every 24 hours Lasix 40 mg IV 1 Magnesium hydroxide 30 mL p.o. daily as needed for constipation Metoprolol 50 mg p.o. twice daily Zofran 4 mg p.o. every 6 hours needed for nausea and vomiting Oxycodone/acetaminophen 5/325 1 tablet every 3 hours as needed for pain Pantoprazole 40 mg p.o. nightly Brovana inhaler every 12 hours Dilantin 200 mg p.o. daily Prednisone 40 mg p.o. daily Family History Mother of complications of lymphoma Brother had metastatic lung cancer (he was a smoker) C's Father of complications of coronary artery disease. Social History Patient lives at home with his , he has 4 adult children who live in [place], [place], [place] and [place]. He is retired from the [employer] where he served for 4 years in the . Patient reports a 40 year /4 pack year history of smoking in the 1960s as well. 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 He denies alcohol abuse. Physical Exam Vital Signs Vital Signs Date Time Temp Pulse Resp B/P (MAP) Pulse Ox O2 Delivery O2 Flow Rate FiO2 04/09/18 09:40 98 Simple Mask 10.00 04/09/18 03:00 98 Simple Mask 10.00 04/09/18 03:00 108 04/09/18 03:00 98.3 108 22 126/72 (90) 98 04/09/18 01:58 22 04/08/18 23:00 93 Venturi Mask 6.00 50 04/08/18 23:00 110 04/08/18 23:00 97.9 110 22 118/77 (91) 93 04/08/18 21:36 93 Venturi Mask 6.00 50 04/08/18 19:00 92 Venturi Mask 6.00 50 04/08/18 19:00 97.5 94 22 131/82 (98) 92 04/08/18 19:00 94 04/08/18 18:45 20 04/08/18 15:00 93 Venturi Mask 6.00 40 04/08/18 15:00 97.9 98 20 116/74 (88) 93 04/08/18 15:00 97 04/08/18 11:00 98.4 108 20 119/80 (93) 93 04/08/18 11:00 110 04/08/18 11:00 93 Venturi Mask 6.00 40 Physical Exam GENERAL: Elderly male, sitting up in bed, he is in obvious respiratory distress. SKIN: No rashes, ecchymoses or lesions. Cool and dry. Conjunctivae mildly pale sclerae nonicteric HEAD: Atraumatic. Normocephalic. No temporal or scalp tenderness. EYES: Pupils equal round and reactive. Extraocular motions intact. No scleral icterus. No injection or drainage. ENT: Nose without bleeding, purulent drainage or septal hematoma. Throat without erythema, tonsillar hypertrophy or exudate. Uvula midline. Airway patent. NECK: Trachea midline. No JVD or lymphadenopathy. Supple, nontender, no meningeal signs. CARDIOVASCULAR: Tachycardic with heart rate ranging between 125 and 135 bpm, rhythm appears regular, no obvious murmurs rubs gallops. RESPIRATORY: Patient is in respiratory distress, tachypneic, on a facemask, decreased bibasilar breath sounds right greater than left. Prolonged expiratory phase. GASTROINTESTINAL: Abdomen soft, non-tender, nondistended. No hepato-splenomegaly , or palpable masses. No guarding. MUSCULOSKELETAL: Extremities without clubbing, cyanosis, or edema. No joint tenderness, effusion, or edema noted. No calf tenderness. Negative Homans sign bilaterally. NEUROLOGICAL: Awake and alert. Cranial nerves II through XII intact. Motor and sensory grossly within normal limits. Five out of 5 muscle strength in all muscle groups. Normal speech. Laboratory Laboratory Tests Test 04/09/18 06:02 04/09/18 10:00 Blood Gas Puncture Site LT RADIAL Blood Gas Patient Temperature 98.6 Blood Gas HCO3 33 Blood Gas Base Excess 8.0 Blood Gas Oxygen Saturation 96 Arterial Blood pH 7.37 Arterial Blood Partial Pressure CO2 60 Arterial Blood Partial Pressure O2 110 Arterial Blood Oxygen Content 14.4 Arterial Blood Carboxyhemoglobin 1.2 Arterial Blood Methemoglobin 1.3 Blood Gas Hemoglobin 10.6 Oxygen Delivery Device SIMPLE MASK Blood Gas Liter Flow 10 White Blood Count 30.8 Red Blood Count 3.46 Hemoglobin 10.5 Hematocrit 32.6 Mean Corpuscular Volume 94.3 Mean Corpuscular Hemoglobin 30.3 Mean Corpuscular Hemoglobin Concent 32.1 Red Cell Distribution Width 13.8 Platelet Count 312 Mean Platelet Volume 8.6 Neutrophils (%) (Auto) 92.3 Lymphocytes (%) (Auto) 1.5 Monocytes (%) (Auto) 4.8 Eosinophils (%) (Auto) 1.0 Basophils (%) (Auto) 0.4 Neutrophils # (Auto) 28.4 Lymphocytes # (Auto) 0.5 Monocytes # (Auto) 1.5 Eosinophils # (Auto) 0.3 Basophils # (Auto) 0.1 CBC Comment AUTO DIFF Date/Time Source Procedure Growth Status 04/05/18 14:30 Fluid Other Fungal Smear - Final NO FUNGAL ELEMENTS SEEN. Resulted 04/05/18 14:30 Fluid Other Fungal Culture Pending Resulted Result Diagram: 04/09/18 1000 04/07/18 1739 Imaging Chest x-ray dated 04/09/2018: No significant change in patchy bilateral airspace opacities and a small right- sided pleural effusion. Endotracheal tube removed in the interim. Assessment and Plan Assessment and Plan 77-year-old man with a history of rheumatoid arthritis who had recurrent pleural effusions, he was advised thoracotomy with decortication of what was suspected to be an organized empyema. The patient had been on immunosuppressive therapy with Humira for the past 3 or 4 months. On 04/05/2018 he underwent right-sided thoracotomy with attempted decortication however he was noted to have a very thick and tightly adherent peel overlying the right lung and right parietal pleura. A decortication was not technically possible due to the high risk for adverse outcomes, therefore a limited decortication was performed, biopsies and microbiology specimens were sent. Preliminary/ frozen section findings of the specimen indicated findings consistent with adenocarcinoma. The oncology service is been asked to see him for further workup and management. Plan: 1. Right lung malignant empyema: Await final pathology results. I will review outpatient scans and outpatient workup done prior to this hospitalization. Once a diagnosis of malignancy is confirmed I will perform systemic staging and perform additional molecular tests to help guide future treatment. I did attempt explained this to the patient, he however at this time is in significant respiratory distress and expresses his difficulty breathing as his major concern at this time. Oncology service will follow along with you. Thank you for involving me in the care of this patient. Tylor Guidry MD April 09, 2018 11:15
[2018-04-09 11:19] LABS: BANDS 12 % (0-6); LYMPHOCYTES 1 % (9-44); MONOCYTES 3 % (0-8); NEUTROPHIL # MANUAL DIFF 28.6 TH/MM3 (1.8-7.7); POLYS (SEG NEUTROPHILS) 81 % (16-70)
[2018-04-09 11:20] LABS: TOXIC VACUOLATION PRESENT (NONE SEEN)
[2018-04-09] MEDS ORDERED: Vancomycin Consult Pharmacy 1 EA OTHER SCH (15:00)
--- NOTE | 2018-04-09 15:11 | HHI.CCPN ---
Subjective Remarks/Hospital Course Hospital Course: 77-year-old gentleman with history of rheumatoid arthritis, COPD, seizure disorder, recurrent pneumonias and now organized empyema on the right side underwent posterolateral thoracotomy and localized decortication with biopsy of peel by Dr. Murdock. Postprocedure patient remains intubated and is admitted to critical care unit with postprocedure respiratory failure. The routine critical care consult was placed for ventilatory management. subjective: 04/06: clinically improving. follows commands. on SBT this AM. denies pain complaints. ROS limited by intubation, but appears to be negative. 04/07: Sitting up in chair breathing comfortably. Currently on partial nonrebreather oxygen saturation 98%, transition to 50% Ventimask with maintaining oxygen saturation above 94%. Chest tube with 135 mL output in 24 hours 04/09: Critical care reconsulted by Dr. Mariscal for worsening respiratory status. Patient requiring 10 L facemask O2 and appears anxious. He is resting in bed currently at the time of my evaluation. He is slightly tachypneic and using accessory muscles of respiration. He had just received Lasix prior to my evaluation. Objective Vital Signs Date Time Temp Pulse Resp B/P (MAP) Pulse Ox O2 Delivery O2 Flow Rate FiO2 04/09/18 09:40 98 Simple Mask 10.00 04/09/18 03:00 108 04/09/18 03:00 98.3 22 126/72 (90) 04/08/18 23:00 50 Intake and Output 04/09/18 04/09/18 04/10/18 08:00 16:00 00:00 Intake Total 240 ml Output Total 400 ml Balance -160 ml Result Diagram: 04/09/18 1000 04/09/18 1000 Other Results Laboratory Tests Test 04/09/18 06:02 Blood Gas Puncture Site LT RADIAL Blood Gas Patient Temperature 98.6 Blood Gas HCO3 33 mmol/L (22-26) Blood Gas Base Excess 8.0 mmol/L (-2-2) Blood Gas Oxygen Saturation 96 % (90-100) Arterial Blood pH 7.37 (7.380-7.420) Arterial Blood Partial Pressure CO2 60 mmHg (38-42) Arterial Blood Partial Pressure O2 110 mmHg (61-120) Arterial Blood Oxygen Content 14.4 Vol % (12.0-20.0) Arterial Blood Carboxyhemoglobin 1.2 % (0-4) Arterial Blood Methemoglobin 1.3 % (0-2) Blood Gas Hemoglobin 10.6 G/DL (12.0-16.0) Oxygen Delivery Device SIMPLE MASK Blood Gas Liter Flow 10 L/M Imaging Last 48 hours Impressions Chest X-Ray 04/09/18 0500 Signed Impressions: CONCLUSION: No significant change patchy bilateral airspace opacities and small right pleur al effusion. Endotracheal tube out. Last 24 hours Impressions Chest X-Ray 04/05/18 2152 Signed Impressions: CONCLUSION: Chest X-Ray 04/05/18 0000 Signed Impressions: CONCLUSION: Clips in the left hilar region. Objective Remarks GENERAL: elderly male, laying in bed SKIN: Warm and dry. HEAD: Normocephalic. EYES: No scleral icterus. No injection or drainage. NECK: Supple, trachea midline. No JVD CARDIOVASCULAR: S1-S2 regular, no gallop or murmur RESPIRATORY: Air entry equal bilaterally no wheezes. right chest tube to suction. Standard crackles of the right lung field noted GASTROINTESTINAL: Abdomen soft, non-tender, nondistended. MUSCULOSKELETAL: No cyanosis, or edema. NEURO EXAM: Alert awake and oriented 3 no focal deficits A/P Assessment and Plan Assessment: 77yM POD 6 s/p right thoracotomy for empyema. Extubated 04/06/2018 Post-operative respiratory failure - Extubated 04/06/18, on facemask O2 currently. - i.s. and pulmonary toilet. Add EzPAP -Change some albuterol to DuoNeb's every 6 hours with albuterol every 2 hourly as needed On prednisone 40 mg daily. Given Lasix on 04/09 to mobilize fluid per CT surgery - wean o2 for goal spo2 > 90% - CT to suction: management per CT surgery. Empyema s/p right thoracotomy and decortication 04/05 -Antibiotics stopped on 04/05. Patient on Levaquin and vancomycin perioperatively. Worsening leukocytosis with bandemia and toxic granulations noted on labs done on 04/09 in view of worsening respiratory status will initiate empiric antibiotic coverage with IV Zosyn, vancomycin per pharmacy dosing. Blood cultures, UA and urine cultures ordered. -Status post decortication, cultures negative -Further management per CT surgeon COPD -DuoNeb scheduled and as needed --Has been switched from IV Solu-Medrol to prednisone 40 mg p.o. daily. -Pulmicort GERD -Pantoprazole Seizure disorder -Dilantin History of DVT -Eliquis on hold for surgical procedures -Resume when okay with surgeon -On DVT prophylaxis with Lovenox. DVT GI prophylaxis -Loyd's and SCDs, Lovenox -Pantoprazole We will see how patient responds with diuretics and antibiotics. Awaiting 2D echo and BNP. Increasing leukocytosis indicates possible infection due to presence of bandemia and toxic granulations the patient has been on steroids. Critical care will continue to follow. Randall Scott MD April 09, 2018 15:11
[2018-04-09] MEDS: RESP: ALBUTEROL 2.5 MG/IPRATROPIUM 0.5 MG NEB (SCH) NEB ×2 (16:14→21:49)
[2018-04-09] MEDS: DILANTIN 100 MG PO SCH (17:00)
[2018-04-09] MEDS: VANCOMYCIN INJ 1,250 MG in SODIUM CHLOR 0.9% 250 ML INJ 250 ML IV SCH (17:20)
[2018-04-09] MEDS: PIPERACIL-TAZO 4.5 GM PREMIX 100 ML IV SCH ×2 (17:20→22:15)
[2018-04-09 18:31] LABS: BILIRUBIN, URINE NEG (NEG); BLOOD, URINE SMALL (NEG); GLUCOSE,URINE NEG (NEG); KETONE, URINE NEG (NEG); MUCUS URINE FEW /lpf (OCC); NITRITE,URINE NEG (NEG); PH, URINE 5.5 (5.0-8.5); URINE COLOR YELLOW (YELLW/STRAW); URINE LEUKOCYTE ESTERASE NEG (NEG)
[2018-04-09] MEDS: PANTOPRAZOLE SOD 40 MG DELAYED RELEASE TAB PO SCH (20:22)
[2018-04-10] VITALS (9 sets, daily range): BP systolic 118–131; BP diastolic 80–91; PULSE 84–111; RESP 16–28; TEMP 97.6–98.2; O2SAT 93–99
[2018-04-10] MEDS: PIPERACIL-TAZO 4.5 GM PREMIX 100 ML IV SCH ×4 (03:36→21:01)
[2018-04-10] MEDS: VANCOMYCIN INJ 1,250 MG in SODIUM CHLOR 0.9% 250 ML INJ 250 ML IV SCH ×2 (03:38→15:09)
[2018-04-10] MEDS: RESP: ALBUTEROL 2.5 MG/IPRATROPIUM 0.5 MG NEB (SCH) NEB ×4 (03:38→21:10)
[2018-04-10] MEDS: PCA - TOTAL MG MORPHINE DELIVERED PER SHIFT SCH ×3 (05:37→21:01)
[2018-04-10] MEDS: SODIUM CHLORIDE 0.9% FLUSH 10 ML FLUSH IV FLUSH SCH ×2 (09:00→21:01)
[2018-04-10] MEDS: ENOXAPARIN SODIUM 40 MG/0.4 ML SYRINGE SQ SCH (09:01)
[2018-04-10] MEDS: predniSONE 20 MG TAB PO SCH (09:01)
[2018-04-10] MEDS: METOPROLOL TARTRATE 50 MG TAB PO SCH ×2 (09:01→21:01)
[2018-04-10] MEDS: DOCUSATE SODIUM 100 MG CAP PO SCH ×2 (09:01→21:00)
[2018-04-10 09:04] LABS: BASOPHIL # 0.1 TH/MM3 (0-0.2); BASOPHIL % 0.4 % (0.0-2.0); EOSINOPHIL # 0.2 TH/MM3 (0-0.4); EOSINOPHIL % 0.9 % (0.0-4.0); HEMATOCRIT 30.8 % (39.0-51.0); LYMPH % 1.7 % (9.0-44.0); LYMPHOCYTE # 0.4 TH/MM3 (1.0-4.8); MEAN CELL VOLUME 94.4 FL (80.0-100.0); MEAN CORPUSCULAR HEMOGLOBIN 30.8 PG (27.0-34.0); MEAN CORPUSCULAR HGB CONC 32.6 % (32.0-36.0); MEAN PLATELET VOLUME 8.7 FL (7.0-11.0); MONOCYTE # 1.4 TH/MM3 (0-0.9); PLATELET COUNT 276 TH/MM3 (150-450); RED BLOOD COUNT 3.26 MIL/MM3 (4.50-5.90); RED CELL DISTRIBUTION WIDTH 13.8 % (11.6-17.2); WHITE BLOOD COUNT 27.1 TH/MM3 (4.0-11.0)
--- NOTE | 2018-04-10 09:08 | HHI.CCPN ---
Subjective Remarks/Hospital Course Hospital Course: 77-year-old gentleman with history of rheumatoid arthritis, COPD, seizure disorder, recurrent pneumonias and now organized empyema on the right side underwent posterolateral thoracotomy and localized decortication with biopsy of peel by Dr. Murdock. Postprocedure patient remains intubated and is admitted to critical care unit with postprocedure respiratory failure. The routine critical care consult was placed for ventilatory management. subjective: 04/06: clinically improving. follows commands. on SBT this AM. denies pain complaints. ROS limited by intubation, but appears to be negative. 04/07: Sitting up in chair breathing comfortably. Currently on partial nonrebreather oxygen saturation 98%, transition to 50% Ventimask with maintaining oxygen saturation above 94%. Chest tube with 135 mL output in 24 hours 04/09: Critical care reconsulted by Dr. Stef Murdock for worsening respiratory status. Patient requiring 10 L facemask O2 and appears anxious. He is resting in bed currently at the time of my evaluation. He is slightly tachypneic and using accessory muscles of respiration. He had just received Lasix prior to my evaluation. 04/10: Breathing appears to be slightly improved. Below 100. Patient was started on antibiotics on 04/09 for suspected recurrent pneumonia in view of worsening leukocytosis with bandemia and toxic granules. Objective Vital Signs Date Time Temp Pulse Resp B/P (MAP) Pulse Ox O2 Delivery O2 Flow Rate FiO2 04/10/18 03:16 99 Simple Mask 10.00 04/10/18 03:16 94 04/10/18 03:16 98.0 16 124/82 (96) 04/08/18 23:00 50 Intake and Output 04/10/18 04/10/18 04/11/18 08:00 16:00 00:00 Intake Total 240 ml Output Total 450 ml Balance -210 ml Result Diagram: 04/09/18 1000 04/09/18 1000 Imaging Last 48 hours Impressions Chest X-Ray 04/09/18 0500 Signed Impressions: CONCLUSION: No significant change patchy bilateral airspace opacities and small right pleur al effusion. Endotracheal tube out. Last 24 hours Impressions Chest X-Ray 04/05/18 2152 Signed Impressions: CONCLUSION: Chest X-Ray 04/05/18 0000 Signed Impressions: CONCLUSION: Clips in the left hilar region. Objective Remarks GENERAL: elderly male, laying in bed SKIN: Warm and dry. HEAD: Normocephalic. EYES: No scleral icterus. No injection or drainage. NECK: Supple, trachea midline. No JVD CARDIOVASCULAR: S1-S2 regular, no gallop or murmur RESPIRATORY: Air entry equal bilaterally no wheezes. right chest tube to suction. Standard crackles of the right lung field noted GASTROINTESTINAL: Abdomen soft, non-tender, nondistended. MUSCULOSKELETAL: No cyanosis, or edema. NEURO EXAM: Alert awake and oriented 3 no focal deficits A/P Assessment and Plan Assessment: 77yM POD 7 s/p right thoracotomy for empyema. Extubated 04/06/2018 Post-operative respiratory failure - Extubated 04/06/18, on facemask O2 currently. - i.s. and pulmonary toilet. EzPAP -Change some albuterol to DuoNeb's every 6 hours with albuterol every 2 hourly as needed On prednisone 40 mg daily. Given Lasix on 04/09 to mobilize fluid per CT surgery however BNP not elevated. Suspect pneumonia as etiology for worsening respiratory failure with possible COPD exacerbation. - wean o2 for goal spo2 > 90% - CT to suction: management per CT surgery. Empyema s/p right thoracotomy and decortication 04/05 -Antibiotics stopped on 04/05. Patient on Levaquin and vancomycin perioperatively. Worsening leukocytosis with bandemia and toxic granulations noted on labs done on 04/09, in view of worsening respiratory status initiated empiric antibiotic coverage with IV Zosyn, vancomycin per pharmacy dosing. Blood cultures, UA and urine cultures ordered. -Status post decortication, cultures negative -Further management per CT surgeon COPD -DuoNeb scheduled and as needed --Has been switched from IV Solu-Medrol to prednisone 40 mg p.o. daily. -Pulmicort GERD -Pantoprazole Seizure disorder -Dilantin History of DVT -Eliquis on hold for surgical procedures -Resume when okay with surgeon -On DVT prophylaxis with Lovenox. DVT GI prophylaxis -Loyd's and SCDs, Lovenox -Pantoprazole We will see how patient responds with diuretics and antibiotics. Awaiting 2D echo. BNP not elevated. Increasing leukocytosis indicates possible infection due to presence of bandemia and toxic granulations the patient has been on steroids. Patient has had recurrent pneumonias previously. Being followed by oncology for lung CA. Critical care will continue to follow. Randall Scott MD April 10, 2018 09:08
[2018-04-10 09:27] LABS: ALBUMIN 1.8 GM/DL (3.4-5.0); ALT (GPT) 25 U/L (12-78); AST (GOT) 21 U/L (15-37); BICARBONATE 33.5 MEQ/L (21.0-32.0); BLOOD UREA NITROGEN 26 MG/DL (7-18); CALCIUM 9.1 MG/DL (8.5-10.1); CHLORIDE 94 MEQ/L (98-107); CREATININE 0.72 MG/DL (0.60-1.30); GLOMERULAR FILTRATION RATE 106 ML/MIN (>89); GLUCOSE,RANDOM 139 MG/DL (74-106); SODIUM (NA) 135 MEQ/L (136-145)
[2018-04-10 09:30] LABS: ALKALINE PHOSPHATASE 134 U/L (45-117); TOTAL BILIRUBIN ADULT 0.4 MG/DL (0.2-1.0); TOTAL PROTEIN 7.1 GM/DL (6.4-8.2)
[2018-04-10 09:38] LABS: BANDS 12 % (0-6); MONOCYTES 3 % (0-8); POLYS (SEG NEUTROPHILS) 84 % (16-70)
[2018-04-10 09:39] LABS: TOXIC VACUOLATION PRESENT (NONE SEEN)
[2018-04-10] MEDS: RESP: BUDESONIDE 0.5 MG/2 ML NEB NEB SCH ×2 (09:42→21:11)
[2018-04-10] MEDS: ALPRAZolam 0.5 MG TAB PO PRN ×2 (10:09→18:33)
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
[2018-04-10] MEDS: oxyCODONE/ACETAMINOPHEN 5 MG/325 MG TAB PO PRN ×2 (11:37→18:33)
[2018-04-10] MEDS: DILANTIN 100 MG PO SCH (16:50)
[2018-04-10] MEDS: PANTOPRAZOLE SOD 40 MG DELAYED RELEASE TAB PO SCH (21:01)
[2018-04-11] VITALS (9 sets, daily range): BP systolic 124–135; BP diastolic 81–92; PULSE 88–110; RESP 20–24; TEMP 97–98.2; O2SAT 93–99
[2018-04-11] MEDS: ALPRAZolam 0.5 MG TAB PO PRN ×2 (01:44→09:20)
[2018-04-11] MEDS: oxyCODONE/ACETAMINOPHEN 5 MG/325 MG TAB PO PRN (01:44)
[2018-04-11] MEDS: PIPERACIL-TAZO 4.5 GM PREMIX 100 ML IV SCH ×4 (03:12→20:54)
[2018-04-11] MEDS: VANCOMYCIN INJ 1,250 MG in SODIUM CHLOR 0.9% 250 ML INJ 250 ML IV SCH (03:18)
[2018-04-11] MEDS ORDERED: PHARMACY ORDERED LAB ONE (03:45)
[2018-04-11] MEDS: RESP: ALBUTEROL 2.5 MG/IPRATROPIUM 0.5 MG NEB (SCH) NEB ×4 (03:51→21:18)
[2018-04-11 04:10] LABS: AUTOMATED NEUTROPHIL # 20.3 TH/MM3 (1.8-7.7); BASOPHIL # 0.1 TH/MM3 (0-0.2); BASOPHIL % 0.2 % (0.0-2.0); EOSINOPHIL # 0.1 TH/MM3 (0-0.4); EOSINOPHIL % 0.4 % (0.0-4.0); HEMATOCRIT 29.4 % (39.0-51.0); HEMOGLOBIN 9.7 GM/DL (13.0-17.0); LYMPH % 3.7 % (9.0-44.0); LYMPHOCYTE # 0.8 TH/MM3 (1.0-4.8); MEAN CELL VOLUME 94.1 FL (80.0-100.0); MEAN PLATELET VOLUME 8.1 FL (7.0-11.0); MONO % 5.7 % (0.0-8.0); MONOCYTE # 1.3 TH/MM3 (0-0.9); PLATELET COUNT 304 TH/MM3 (150-450); RED BLOOD COUNT 3.13 MIL/MM3 (4.50-5.90); RED CELL DISTRIBUTION WIDTH 13.8 % (11.6-17.2); WHITE BLOOD COUNT 22.5 TH/MM3 (4.0-11.0)
[2018-04-11 04:34] LABS: ALBUMIN 1.6 GM/DL (3.4-5.0); BICARBONATE 36.9 MEQ/L (21.0-32.0); BLOOD UREA NITROGEN 24 MG/DL (7-18); CHLORIDE 95 MEQ/L (98-107); CREATININE 0.61 MG/DL (0.60-1.30); GLOMERULAR FILTRATION RATE 129 ML/MIN (>89); GLUCOSE,RANDOM 110 MG/DL (74-106); SODIUM (NA) 138 MEQ/L (136-145)
[2018-04-11 04:35] LABS: AST (GOT) 26 U/L (15-37)
[2018-04-11 04:38] LABS: ALKALINE PHOSPHATASE 151 U/L (45-117); ALT (GPT) 30 U/L (12-78); TOTAL BILIRUBIN ADULT 0.3 MG/DL (0.2-1.0); TOTAL PROTEIN 6.7 GM/DL (6.4-8.2)
[2018-04-11] MEDS: PCA - TOTAL MG MORPHINE DELIVERED PER SHIFT SCH ×3 (05:12→20:54)
--- NOTE | 2018-04-11 06:33 | RADRPT ---
EXAM DATE: 04/11/2018 6:19 AM EDT AGE/SEX: 77 years / Male INDICATIONS: Shortness of breath, possible pulmonary disease. CLINICAL DATA: This is the patient's subsequent encounter. Patient reports that signs and symptoms h ave been present for 2 weeks and indicates a pain score of 0/10. MEDICAL/SURGICAL HISTORY: None. Cholecystectomy. Lobectomy. COMPARISON: [facility] [place] CHEST SINGLE AP, 04/09/2018. . FINDINGS: Large right pleural effusion is present with bilateral mixed interstitial and alveolar process not si gnificantly changed. Left subclavian line has not changed. The rest of the examination has not change d. CONCLUSION: No appreciable change. Electronically signed by: Cesar Etienne MD 04/11/2018 6:32 AM EDT
[2018-04-11] MEDS: RESP: BUDESONIDE 0.5 MG/2 ML NEB NEB SCH ×2 (08:57→21:18)
[2018-04-11] MEDS: predniSONE 20 MG TAB PO SCH (09:06)
[2018-04-11] MEDS: DOCUSATE SODIUM 100 MG CAP PO SCH ×2 (09:06→20:54)
[2018-04-11] MEDS: METOPROLOL TARTRATE 50 MG TAB PO SCH ×2 (09:06→20:54)
[2018-04-11] MEDS: ENOXAPARIN SODIUM 40 MG/0.4 ML SYRINGE SQ SCH (09:06)
[2018-04-11] MEDS: RESP: ALBUTEROL 2.5 MG/3 ML NEB (PRN) NEB (11:27)
[2018-04-11] MEDS ORDERED: LORazepam 2 MG/ML VIAL IV ONE (12:00)
[2018-04-11] MEDS ORDERED: methylPREDNISolone SOD SUCC 125 MG/2 ML VIAL IV PUSH ONE (13:30)
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
--- NOTE | 2018-04-11 14:22 | HHI.CCPN ---
Subjective Remarks/Hospital Course Hospital Course: 77-year-old gentleman with history of rheumatoid arthritis, COPD, seizure disorder, recurrent pneumonias and now organized empyema on the right side underwent posterolateral thoracotomy and localized decortication with biopsy of peel by Dr. Murdock. Postprocedure patient remains intubated and is admitted to critical care unit with postprocedure respiratory failure. The routine critical care consult was placed for ventilatory management. subjective: 04/06: clinically improving. follows commands. on SBT this AM. denies pain complaints. ROS limited by intubation, but appears to be negative. 04/07: Sitting up in chair breathing comfortably. Currently on partial nonrebreather oxygen saturation 98%, transition to 50% Ventimask with maintaining oxygen saturation above 94%. Chest tube with 135 mL output in 24 hours 04/09: Critical care reconsulted by Dr. Stef Murdock for worsening respiratory status. Patient requiring 10 L facemask O2 and appears anxious. He is resting in bed currently at the time of my evaluation. He is slightly tachypneic and using accessory muscles of respiration. He had just received Lasix prior to my evaluation. 04/10: Breathing appears to be slightly improved. Below 100. Patient was started on antibiotics on 04/09 for suspected recurrent pneumonia in view of worsening leukocytosis with bandemia and toxic granules. 04/11: Breathing appears more labored. Received Ativan earlier for anxiety. Chest x-ray shows worsening right effusion. Objective Vital Signs Date Time Temp Pulse Resp B/P (MAP) Pulse Ox O2 Delivery O2 Flow Rate FiO2 04/11/18 11:00 109 04/11/18 11:00 20 125/92 (103) 93 04/11/18 11:00 Simple Mask 10.00 04/11/18 07:00 97.0 04/08/18 23:00 50 Intake and Output 04/11/18 04/11/18 04/12/18 08:00 16:00 00:00 Intake Total 590 ml Output Total 410 ml Balance 180 ml Result Diagram: 04/11/18 0352 04/11/18 0352 Imaging Last 48 hours Impressions Chest X-Ray 04/09/18 0500 Signed Impressions: CONCLUSION: No significant change patchy bilateral airspace opacities and small right pleur al effusion. Endotracheal tube out. Last 24 hours Impressions Chest X-Ray 5/22/18 2152 Signed Impressions: CONCLUSION: Chest X-Ray 04/05/18 0000 Signed Impressions: CONCLUSION: Clips in the left hilar region. Objective Remarks GENERAL: elderly male, laying in bed SKIN: Warm and dry. HEAD: Normocephalic. EYES: No scleral icterus. No injection or drainage. NECK: Supple, trachea midline. No JVD CARDIOVASCULAR: S1-S2 regular, no gallop or murmur RESPIRATORY: Air entry equal bilaterally no wheezes. right chest tube to suction. crackles over right lung field noted. Using accessory muscles of respiration. GASTROINTESTINAL: Abdomen soft, non-tender, nondistended. MUSCULOSKELETAL: No cyanosis, or edema. NEURO EXAM: Drowsy, arousable, moves all 4 extremities A/P Assessment and Plan Assessment: 77yM POD 7 s/p right thoracotomy for empyema. Extubated 04/06/2018 Post-operative respiratory failure - Extubated 04/06/18, on facemask O2 - i.s. and pulmonary toilet. EzPAP -Change some albuterol to DuoNeb's every 6 hours with albuterol every 2 hourly as needed On prednisone 40 mg daily-switched to Solu-Medrol 125 mg IV 1 and then 40 mg IV every 6 hourly on 04/11. Given Lasix on 04/09 to mobilize fluid per CT surgery however BNP not elevated. Suspect pneumonia as etiology for worsening respiratory failure with underlying malignancy and possible COPD exacerbation. - wean o2 for goal spo2 > 90% - CT to suction: management per CT surgery. Empyema s/p right thoracotomy and decortication 04/05 -Antibiotics stopped on 04/05. Patient on Levaquin and vancomycin perioperatively. Worsening leukocytosis with bandemia and toxic granulations noted on labs done on 04/09, in view of worsening respiratory status initiated empiric antibiotic coverage with IV Zosyn, vancomycin per pharmacy dosing. Blood cultures, UA and urine cultures ordered. ID consult requested -Status post decortication, cultures negative -Further management per CT surgeon COPD -DuoNeb scheduled and as needed --Solu-Medrol -Pulmicort GERD -Pantoprazole Seizure disorder -Dilantin History of DVT -Eliquis on hold for surgical procedures -Resume when okay with surgeon -On DVT prophylaxis with Lovenox. DVT GI prophylaxis -Loyd's and SCDs, Lovenox -Pantoprazole We will see how patient responds with diuretics and antibiotics. Awaiting 2D echo. BNP not elevated. Increasing leukocytosis indicates possible infection due to presence of bandemia and toxic granulations the patient has been on steroids. Patient has had recurrent pneumonias previously. Being followed by oncology for lung CA. Discussed with Dr. Seven Murdock-kody. Patient respiratory status has declined significantly and patient is at risk for intubation. Both of us had discussion with patient's family independently. Patient's tells me that he would not want intubation or CPR in this setting. She is requesting to talk to palliative care to discuss options including possible hospice. Patient will be made DNR status per discussion with patient's . Prognosis appears poor. Critical care will continue to follow. Randall Scott MD April 11, 2018 14:22
[2018-04-11] MEDS ORDERED: MORPHINE SULFATE 2 MG/ML SYRINGE IV PUSH PRN ×2 (15:30)
[2018-04-11] MEDS: VANCOMYCIN INJ 1,750 MG in SODIUM CHLORID 0.9% 500 ML INJ 500 ML IV SCH (15:49)
[2018-04-11] MEDS: LORazepam 2 MG/ML VIAL IV PUSH PRN (15:52)
[2018-04-11] MEDS: DILANTIN 100 MG PO SCH (17:00)
--- NOTE | 2018-04-11 17:58 | ECHRPT ---
Indication: ASSESS LV FUNCTION CONCLUSIONS The transthoracic study is normal by two-dimensional, color flow imaging and Doppler interrogation. The left ventricular systolic function is [id number] reduced with an estimated ejection fra ction in the range of 35-40%. Normal left ventricular size. Wall thickness is normal. No regional wall motion abnormalities are present. Mild thickening of the tricuspid valve leaflets. The estimated pulmonary arterial pressure is 66.6 mmHg. Trivial pulmonary valve regurgitation. BP: 129 / 81 HR: 97 Rhythm: Sinus MEASUREMENTS (Male / Female) Normal Values Technical Quality:Fair 2D ECHO LV Diastolic Diameter PLAX 4.6 cm 4.2 - 5.9 / 3.9 - 5.3 cm LV Systolic Diameter PLAX 3.9 cm IVS Diastolic Thickness 1.1 cm 0.6 - 1.0 / 0.6 - 0.9 cm LVPW Diastolic Thickness 1.1 cm 0.6 - 1.0 / 0.6 - 0.9 cm LV Relative Wall Thickness 0.5 RV Internal Dim ED PLAX 2.4 cm LVOT Diameter 2.2 cm Aortic Root Diameter 2.8 cm LA Systolic Diameter LX 3.2 cm 3.0 - 4.0 / 2.7 - 3.8 cm M-MODE AV Cusp Separation MM 2.1 cm DOPPLER AV Peak Velocity 132.0 cm/s AV Peak Gradient 7.0 mmHg AV Mean Gradient 4.0 mmHg AV Velocity Time Integral 21.2 cm LVOT Peak Velocity 91.0 cm/s LVOT Peak Gradient 3.3 mmHg LVOT Velocity Time Integral 13.7 cm LVOT Cardiac Index 2539.5 cm/minm AV Area Cont Eq vti 2.5 cm AV Area Cont Eq pk 2.6 cm Mitral E Point Velocity 91.3 cm/s Mitral A Point Velocity 54.8 cm/s Mitral E to A Ratio 1.7 LV E' Lateral Velocity 6.8 cm/s Mitral E to LV E' Lateral Ratio 13.4 LV E' Septal Velocity 4.9 cm/s Mitral E to LV E' Septal Ratio 18.7 TR Peak Velocity 376.0 cm/s TR Peak Gradient 56.6 mmHg Right Atrial Pressure 10.0 mmHg Pulmonary Artery Systolic Pressu 66.6 mmHg Right Ventricular Systolic Press 66.6 mmHg PV Peak Velocity 65.4 cm/s PV Peak Gradient 1.7 mmHg FINDINGS LEFT VENTRICLE The left ventricular systolic function is [id number] reduced with an estimated ejection fra ction in the range of 35-40%. Normal left ventricular size. Wall thickness is normal. No regional wall motion abnormalities are present. TRICUSPID VALVE Structurally normal tricuspid valve. Mild thickening of the tricuspid valve leaflets. The estimated pulmonary arterial pressure is 66.6 mmHg. PULMONARY VALVE Trivial pulmonary valve regurgitation. Bryan Marie MD, FACC, [facility] [place] (Electronically Signed) Final Date:11 Apr 2018 17:58
[2018-04-11] MEDS: MORPHINE SULFATE 4 MG/ML INJ IV PUSH PRN ×2 (18:00→22:11)
[2018-04-11] MEDS: methylPREDNISolone SOD SUCC 40 MG/1 ML VIAL IV PUSH SCH ×2 (18:38→23:19)
[2018-04-11] MEDS ORDERED: MORPHINE SULFATE 4 MG/ML INJ IV PUSH PRN (19:07)
--- NOTE | 2018-04-11 19:43 | PD.CONS ---
Consult Service Palliative Care . Consult Requested By Dr. John Scott . Primary Care Physician Non-Staff . Reason for Consultation a. To assist with evaluation and management of symptoms including: dyspnea; pain; generalized weakness b. To assist medical decision maker(s) with: better understanding of current medical conditions; weighing benefits/burdens of medical treatment options; making medical treatment decisions. . HPI History of Present Illness Mr. Ng is a 77 y/o M with a known history of COPD (probably from occupational exposure); recurrent pneumonias; stroke; GERD;seizure disorder; rheumatoid arthritis; DVT; who was transferred from [facility] on 04/05/2018 to have access to a cardiothoracic surgery service. 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 Lau --for recurrent pneumonias. Apparently, there have been multiple hospitalizations over the course of the last year including ones in September and October of 2017. He apparently got significantly worse after being started on Humira for his rheumatoid arthritis. He had been on continuous 02 at home with increasing 02 needs. He had been having a non-productive cough and low grade fevers. Shortness of breath was so severe in early March that he could barely walk across the room. He was unable to get out of the house to go to the lab. He was ultimately hospitalized at [facility] on 03/30/2018. CT imaging at this hospital revealed nodular pleural thickening of the right hemithorax increased when compared to the prior study and suspicious for a neoplastic process such as a mesothelioma. There was also a small right pleural effusion. The patient was transferred here to [facility] to be evaluated by the cardiothoracic team for possible right thoracotomy/video-assisted thoracoscopy with decortication. The thoracic procedure which took place on 04/05/18 revealed a stage IV empyema with a thick peel encasing the lung as well as the parietal pleura. The peel was densely adherent to the visceral pleura and underlying lung. Additional loculated abscess cavities were also identified. 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 Further attempts to decorticate the malignant empyema were aborted for fear of creating underlying lung injury and a bronchopleural fistula. Critical care was consulted and the patient was followed in the coronary care unit. The patient was successfully extubated the next day. Unfortunately, on 04/09/18 the patient's respiratory status declined and has continued to deteriorate. Imaging suggested worsening pneumonia. There was accompanying worsening leukocytosis with bandemia and toxic granules. Imaging also revealed worsening right effusion. Patient denies pain at the time of my visit. Family reports he has been complaining of pain at the surgical site. He is also been complaining of pain with deep breathing and coughing. The patient was not requiring any type of opiate analgesics for pain at home. Normally he would have some pain from his rheumatoid arthritis which was treated with ibuprofen. Family has been concerned regarding the amount of suffering the patient has been enduring. Though a living will written back in September 2016 indicated the patient would want cardiac resuscitation, more recent conversations indicated that the patient would not want resuscitation under his current circumstances. Palliative care was consulted to assist with symptom management and to further clarify goals of medical treatment. . Function/Cognitive Trajectory Less than a year ago, family reports the patient had been able to go to the gym 5 days a week. Decline was slow at first but accelerated in September and then accelerated dramatically over the last several weeks. As noted above, shortness of breath was so severe in the days leading up to the [facility] hospitalization in mid March that the patient could barely walk from bed to bathroom without getting severely short of breath. Patient's weight has declined from the 200s down to 182. . Review of Systems ROS Limitations: Clinical Condition Constitutional: COMPLAINS OF: Diaphoretic episodes, Fatigue, Fever, Weight loss , Change in appetite, Pain, Generalized weakness, DENIES: Weight gain Endocrine: DENIES: Polydipsia, Polyuria, Polyphagia Eyes: COMPLAINS OF: Blurred vision, Vision loss, Double Vision, DENIES: Eye pain Ears, nose, mouth, throat: COMPLAINS OF: Hearing loss, DENIES: Tinnitus, Throat pain, Epistaxis Respiratory: COMPLAINS OF: Cough, Wheezing, Sputum production, Shortness of breath, DENIES: Apneas, Snoring, Hemoptysis Cardiovascular: COMPLAINS OF: Chest pain (With coughing and deep breathing.), Palpitations, Dyspnea on Exertion, DENIES: Syncope, Claudication Gastrointestinal: DENIES: Abdominal pain, Bloody stools, Constipation, Diarrhea , Nausea, Vomiting Genitourinary: COMPLAINS OF: Urinary frequency, DENIES: Hematuria, Dysuria, Dribbling Musculoskeletal: COMPLAINS OF: Joint pain, Joint Swelling, DENIES: Muscle aches Integumentary: DENIES: Pruritus Hematologic/Lymphatics: DENIES: Bruising Immunologic/Allergic: DENIES: Eczema Neurologic: COMPLAINS OF: Seizures, DENIES: Headache, Localized weakness, Tremor Psychiatric: COMPLAINS OF: Anxiety, DENIES: Depression, Hallucinations Past Family Social History Coded Allergies: No Known Allergies (Unverified , 04/04/18) Past Medical History COPD -- probably more from work exposures then from tobacco Rheumatoid arthritis Reported exposure to asbestos Stroke -- some balance issues were the only apparent sequelae Several traumatic brain injuries (concussions) Seizure disorder probably secondary to head injuries -- last seizure probably in the 1980s DVT about 1 year ago on right GERD . Past Surgical History Cholecystectomy Left upper lobectomy 2005; reportedly benign Right knee cyst aspiration Right sided thoracotomy; March 2018 . Reported Medications Pre-hospital medications at home included: 1. DuoNeb. 2. Antivert. 3. Aspirin. 4. Dilantin 100 two tabs p.o. daily. 5. Lasix 40 b.i.d. 6. Leflunomide 20 mg at bedtime. . Current Medications Medications (Trade) Dose Ordered Sig/Shahrzad Route Start Time Stop Time Status Last Admin (Colace) 100 mg BID PO 04/05/18 09:00 04/11/18 09:06 (Tylenol) 650 mg Q6H PRN PO 04/04/18 21:45 (Corbin 5-325 Mg) 1 tab Q4H PRN PO 04/04/18 21:45 (Pulmicort Respule Neb) 0.5 mg Q12HR NEB NEB 04/05/18 08:00 04/11/18 08:57 Patient Own Medication PT OWN MED: BROV... Q12H INH 04/04/18 22:00 Future Hold (Zofran Odt) 4 mg Q6H PRN PO 04/05/18 12:15 (Albuterol Neb) 2.5 mg Q2HR NEB PRN NEB 04/05/18 16:00 04/11/18 11:27 (NS Flush) 2 ml BID IV FLUSH 04/05/18 21:00 04/10/18 21:01 (NS Flush) 2 ml UNSCH PRN IV FLUSH 04/05/18 16:00 (Protonix) 40 mg HS PO 04/05/18 21:00 04/10/18 21:01 (Zofran Inj) 4 mg Q6H PRN IV PUSH 04/05/18 16:00 04/07/18 10:51 (Milk Of Magnesia Liq) 30 ml DAILY PRN PO 04/05/18 16:00 04/08/18 08:41 (Tylenol) 650 mg Q4H PRN PO 04/05/18 16:00 (Narcan Inj) 0.4 mg UNSCH PRN IV PUSH 04/05/18 16:00 (Morphine 1 Mg/ ml SITE INTERPRETER) 30 mg UNSCH IV 04/05/18 16:00 SITE INTERPRETER Dosage Infused (Pha) 1 Q8HR .XX 04/05/18 22:00 Patient Own Medication PT OWN MED: KIM... DAILY@1700 PO 04/06/18 17:00 04/10/18 16:50 (Deltasone) 40 mg DAILY PO 04/08/18 09:00 Future Hold 04/11/18 09:06 (Lovenox Inj) 40 mg Q24H SQ 04/08/18 09:00 04/11/18 09:06 (Lopressor) 50 mg Q12HR PO 04/08/18 09:00 04/11/18 09:06 (Duoneb Neb) 1 ampule Q6HR NEB NEB 04/09/18 16:00 04/11/18 16:11 Piperacillin Sod/ Tazobactam Sod 100 ml @ 200 mls/hr Q6H IV 04/09/18 16:00 04/11/18 15:49 Pharmacy Profile Note 0 ml @ 0 mls/hr UNSCH OTHER 04/09/18 15:00 Vancomycin HCl 1750 mg/Sodium Chloride 517.5 ml @ 250 mls/hr Q12H IV 04/11/18 15:00 04/11/18 15:49 ([facility] Ordered Lab Info) SPECIFIC LAB TO BE SANDRA... ONCE ONCE .XX 04/13/18 02:45 04/13/18 02:46 (SoluMEDROL INJ) 40 mg Q6HR IV PUSH 04/11/18 18:00 (Morphine Inj) 3 mg Q2H PRN IV PUSH 04/11/18 15:30 (Morphine Inj) 5 mg Q2H PRN IV PUSH 04/11/18 15:30 (Ativan Inj) 1 mg Q2H PRN IV PUSH 04/11/18 15:30 04/11/18 15:52 (Ativan Inj) 2 mg Q2H PRN IV PUSH 04/11/18 15:30 . Family History Available family did not know family history. Records indicate that mother from a lymphoma. Father had a ruptured aorta. Sister is alive and well. No other known family history of cancer of lung disease. . Substance Use Tobacco: Smoked while in [employer] age [age] Alcohol: No history of abuse Prescription med abuse: No known prescription medication abuse Illicits: No known use of illicits. . Psychosocial History The patient is originally from [place], [place]. He spent much of his adult life in [place], [place]. The patient and his would spend about 3 months of the year in [place] for several years until they finally moved here permanently in 2011. The patient completed high school and some college. 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 He had a great deal of occupational exposure to fumes, dust, and probably asbestos in both the [place] and his work life. The patient was 3 times. He had 4 children with his first who we ultimately . Cherie, his second had early onset Alzheimer's disease. The patient took care of her for approximately 7 years. She brought 2 children into the relationship which the patient raised. Most recently, the patient has been to Rochelle--they have been for 14 years. The patient's 4 biological children are Raiv masood and Eitan who both live in [place]; Manjit who lives in [place]; and Marley who lives in [place]. His stepchildren through Cherie are-- Dawson, who lives in [place]; and Darleen, who lives in [place]. Rochelle had two children. One daughter committed suicide in 2009. Virgie lives in [place] but is down here supporting her mother now. . Spiritual/Cultural Factors Sikh and spirituality have not played an important role in the patient's life recently. He did bring his children to [employer]aeism yarsanism and enrolled him in [employer] schools at one time. 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 . Living Will: Copy in medical record Health Care Surrogate: Copy in medical record Durable Power of Paper Tube Grader: Never completed Date completed: Living will and healthcare surrogate designation were completed in September 2017. . Health Care Surrogate(s): The patient has designated his , Rochelle, as his healthcare surrogate. . Documented care wishes: The patient's living will indicates he would not want life prolonging measure should he be found to have a terminal illness, end-stage condition, or persistent vegetative state. However, he has written a since then indicating he would want cardiac resuscitation. . Today's verbally stated goals: I was able to asked the patient personally about goals and resuscitation wishes during a period when he was awake and alert. This conversation took place in front of his and stepdaughter on 04/11/18. He indicated given his current condition and prognosis he no longer desires any resuscitative efforts. This new opinion supports what his and told me about conversations they had during his hospitalization in October. . Family/friends goals: The patient's and stepdaughter want to support the patient's goals and preferences. At this point they feel he has suffered enough. They do not believe he will get well enough to receive cancer directed treatments. Also, they wonder if he would be willing to pursue such treatments even if he were well enough to tolerate them. They want to see him comfortable. They are hoping he will remain alive until 3 of his biologic children arrived on . . Ethical and Legal Issues The patient is quite ill, quite short of breath, and gets drowsy from comfort medications. His capacity to make his own medical decisions waxes and wanes. At this point, I would recommend even when he is awake and alert that his participate in shared decision making with him. . Physical Exam Vital Signs Date Time Temp Pulse Resp B/P (MAP) Pulse Ox O2 Delivery O2 Flow Rate FiO2 04/11/18 15:00 97.0 106 22 135/91 (106) 93 04/11/18 15:00 95 Partial Non-Rebreather 15.00 04/11/18 15:00 102 04/11/18 11:00 109 04/11/18 11:00 106 20 125/92 (103) 93 04/11/18 11:00 95 Simple Mask 10.00 04/11/18 08:59 97 Simple Mask 10.00 04/11/18 07:00 95 Simple Mask 10.00 04/11/18 07:00 109 04/11/18 07:00 97.0 109 20 124/85 (98) 94 04/11/18 03:38 98.2 104 20 129/81 (97) 99 04/11/18 03:38 99 Simple Mask 10.00 04/11/18 03:38 103 04/10/18 23:37 98.0 103 20 120/91 (101) 98 04/10/18 23:37 106 04/10/18 23:37 98 Simple Mask 10.00 04/10/18 21:11 95 Simple Mask 10.00 04/10/18 19:36 95 Simple Mask 10.00 04/10/18 19:36 97.9 103 20 125/86 (99) 95 04/10/18 19:00 103 . 04/11/18 04/12/18 19:00 07:00 Intake Total 700 ml Balance 700 ml IV Total 700 ml . Exam CONSTITUTIONAL/GENERAL: Patient is ill-appearing, working hard to breathe, and pale in a coronary care unit bed. He is awake and alert. Answers to questions are terse due to breathlessness. TUBES/LINES/DRAINS: PICC line left upper arm; partial nonrebreather mask; right chest tube SKIN: Right upper back surgical wound. No jaundice, rashes, or lesions. Skin temperature appropriate. Not diaphoretic. HEAD: Atraumatic. Normocephalic. EYES: Pupils equal and round and reactive. Extraocular motions intact. No scleral icterus. No injection or drainage. Fundi not examined. ENT: Hard of hearing. Nose without bleeding or purulent drainage. Throat without visible erythema, exudates, masses, or lesions. NECK: Trachea midline. Supple, nontender. No palpable thyroid enlargement or nodularity. CARDIOVASCULAR: Occasional irregular beat. Otherwise without murmurs, gallops, or rubs. No JVD. Peripheral pulses symmetric but weak RESPIRATORY/CHEST: Symmetric respiratory effort. Right chest tube. Crackles heard greater on right. Using accessory muscles. No audible wheezes. GASTROINTESTINAL: Abdomen soft, non-tender, nondistended. No hepato-splenomegaly , or palpable masses. No guarding. Bowel sounds present. GENITOURINARY: Without palpable bladder distension. MUSCULOSKELETAL: Extremities without clubbing, cyanosis, or edema. No calf tenderness. No mottling or clubbing. LYMPHATICS: No palpable cervical or supraclavicular adenopathy. NEUROLOGICAL: Awake and alert. Follows commands. Responses to questions are terse due to breathlessness. Moves all extremities. PSYCHIATRIC: No obvious anxiety/depression. no apparent hallucinations or other psychotic thought process. . Diagnostic Tests Laboratory Laboratory Tests Test 04/09/18 06:02 04/09/18 10:00 04/09/18 18:09 04/10/18 08:46 Blood Gas Puncture Site LT RADIAL Blood Gas Patient Temperature 98.6 Blood Gas HCO3 33 mmol/L (22-26) Blood Gas Base Excess 8.0 mmol/L (-2-2) Blood Gas Oxygen Saturation 96 % (90-100) Arterial Blood pH 7.37 (7.380-7.420) Arterial Blood Partial Pressure CO2 60 mmHg (38-42) Arterial Blood Partial Pressure O2 110 mmHg (61-120) Arterial Blood Oxygen Content 14.4 Vol % (12.0-20.0) Arterial Blood Carboxyhemoglobin 1.2 % (0-4) Arterial Blood Methemoglobin 1.3 % (0-2) Blood Gas Hemoglobin 10.6 G/DL (12.0-16.0) Oxygen Delivery Device SIMPLE MASK Blood Gas Liter Flow 10 L/M White Blood Count 30.8 TH/MM3 (4.0-11.0) 27.1 TH/MM3 (4.0-11.0) Red Blood Count 3.46 MIL/MM3 (4.50-5.90) 3.26 MIL/MM3 (4.50-5.90) Hemoglobin 10.5 GM/DL (13.0-17.0) 10.0 GM/DL (13.0-17.0) Hematocrit 32.6 % (39.0-51.0) 30.8 % (39.0-51.0) Mean Corpuscular Volume 94.3 FL (80.0-100.0) 94.4 FL (80.0-100.0) Mean Corpuscular Hemoglobin 30.3 PG (27.0-34.0) 30.8 PG (27.0-34.0) Mean Corpuscular Hemoglobin Concent 32.1 % (32.0-36.0) 32.6 % (32.0-36.0) Red Cell Distribution Width 13.8 % (11.6-17.2) 13.8 % (11.6-17.2) Platelet Count 312 TH/MM3 (150-450) 276 TH/MM3 (150-450) Mean Platelet Volume 8.6 FL (7.0-11.0) 8.7 FL (7.0-11.0) Neutrophils (%) (Auto) 92.3 % (16.0-70.0) 92.0 % (16.0-70.0) Lymphocytes (%) (Auto) 1.5 % (9.0-44.0) 1.7 % (9.0-44.0) Monocytes (%) (Auto) 4.8 % (0.0-8.0) 5.0 % (0.0-8.0) Eosinophils (%) (Auto) 1.0 % (0.0-4.0) 0.9 % (0.0-4.0) Basophils (%) (Auto) 0.4 % (0.0-2.0) 0.4 % (0.0-2.0) Neutrophils # (Auto) 28.4 TH/MM3 (1.8-7.7) 25.0 TH/MM3 (1.8-7.7) Lymphocytes # (Auto) 0.5 TH/MM3 (1.0-4.8) 0.4 TH/MM3 (1.0-4.8) Monocytes # (Auto) 1.5 TH/MM3 (0-0.9) 1.4 TH/MM3 (0-0.9) Eosinophils # (Auto) 0.3 TH/MM3 (0-0.4) 0.2 TH/MM3 (0-0.4) Basophils # (Auto) 0.1 TH/MM3 (0-0.2) 0.1 TH/MM3 (0-0.2) CBC Comment AUTO DIFF AUTO DIFF Differential Total Cells Counted 100 100 Neutrophils % (Manual) 81 % (16-70) 84 % (16-70) Band Neutrophils % 12 % (0-6) 12 % (0-6) Lymphocytes % 1 % (9-44) Monocytes % 3 % (0-8) 3 % (0-8) Eosinophils % 3 % (0-4) 1 % (0-4) Neutrophils # (Manual) 28.6 TH/MM3 (1.8-7.7) 26.0 TH/MM3 (1.8-7.7) Differential Comment FINAL DIFF MANUAL FINAL DIFF MANUAL Toxic Vacuolation PRESENT (NONE SEEN) PRESENT (NONE SEEN) Platelet Estimate NORMAL (NORMAL) NORMAL (NORMAL) Platelet Morphology Comment NORMAL (NORMAL) NORMAL (NORMAL) Red Cell Morphology Comment NORMAL (NORMAL) Blood Urea Nitrogen 21 MG/DL (7-18) 26 MG/DL (7-18) Creatinine 0.79 MG/DL (0.60-1.30) 0.72 MG/DL (0.60-1.30) Random Glucose 116 MG/DL (74-106) 139 MG/DL (74-106) Total Protein 6.9 GM/DL (6.4-8.2) 7.1 GM/DL (6.4-8.2) Albumin 2.0 GM/DL (3.4-5.0) 1.8 GM/DL (3.4-5.0) Calcium Level 9.1 MG/DL (8.5-10.1) 9.1 MG/DL (8.5-10.1) Alkaline Phosphatase 141 U/L (45-117) 134 U/L (45-117) Aspartate Amino Transf (AST/SGOT) 19 U/L (15-37) 21 U/L (15-37) Alanine Aminotransferase (ALT/SGPT) 24 U/L (12-78) 25 U/L (12-78) Total Bilirubin 0.4 MG/DL (0.2-1.0) 0.4 MG/DL (0.2-1.0) Sodium Level 136 MEQ/L (136-145) 135 MEQ/L (136-145) Potassium Level 5.0 MEQ/L (3.5-5.1) 4.5 MEQ/L (3.5-5.1) Chloride Level 94 MEQ/L (98-107) 94 MEQ/L (98-107) Carbon Dioxide Level 36.3 MEQ/L (21.0-32.0) 33.5 MEQ/L (21.0-32.0) Anion Gap 6 MEQ/L (5-15) 8 MEQ/L (5-15) Estimat Glomerular Filtration Rate 96 ML/MIN (>89) 106 ML/MIN (>89) B-Type Natriuretic Peptide 84 PG/ML (0-100) Urine Color YELLOW (YELLW/STRAW) Urine Turbidity CLEAR (CLEAR) Urine pH 5.5 (5.0-8.5) Urine Specific [place] 1.022 (1.002-1.035) Urine Protein 30 mg/dL (NEG-TRACE) Urine Glucose (UA) NEG mg/dL (NEG) Urine Ketones NEG mg/dL (NEG) Urine Occult Blood SMALL (NEG) Urine Nitrite NEG (NEG) Urine Bilirubin NEG (NEG) Urine Urobilinogen LESS THAN 2.0 MG/DL (LESS Urine Leukocyte Esterase NEG (NEG) Urine WBC 2 /hpf (0-5) Urine Mucus FEW /lpf (OCC) Microscopic Urinalysis Comment CATH-CULT NOT IND Test 04/11/18 03:14 04/11/18 03:52 Vancomycin Level Trough 9.8 MCG/ML (5.0-10.0) White Blood Count 22.5 TH/MM3 (4.0-11.0) Red Blood Count 3.13 MIL/MM3 (4.50-5.90) Hemoglobin 9.7 GM/DL (13.0-17.0) Hematocrit 29.4 % (39.0-51.0) Mean Corpuscular Volume 94.1 FL (80.0-100.0) Mean Corpuscular Hemoglobin 31.0 PG (27.0-34.0) Mean Corpuscular Hemoglobin Concent 33.0 % (32.0-36.0) Red Cell Distribution Width 13.8 % (11.6-17.2) Platelet Count 304 TH/MM3 (150-450) Mean Platelet Volume 8.1 FL (7.0-11.0) Neutrophils (%) (Auto) 90.0 % (16.0-70.0) Lymphocytes (%) (Auto) 3.7 % (9.0-44.0) Monocytes (%) (Auto) 5.7 % (0.0-8.0) Eosinophils (%) (Auto) 0.4 % (0.0-4.0) Basophils (%) (Auto) 0.2 % (0.0-2.0) Neutrophils # (Auto) 20.3 TH/MM3 (1.8-7.7) Lymphocytes # (Auto) 0.8 TH/MM3 (1.0-4.8) Monocytes # (Auto) 1.3 TH/MM3 (0-0.9) Eosinophils # (Auto) 0.1 TH/MM3 (0-0.4) Basophils # (Auto) 0.1 TH/MM3 (0-0.2) CBC Comment DIFF FINAL Differential Comment Blood Urea Nitrogen 24 MG/DL (7-18) Creatinine 0.61 MG/DL (0.60-1.30) Random Glucose 110 MG/DL (74-106) Total Protein 6.7 GM/DL (6.4-8.2) Albumin 1.6 GM/DL (3.4-5.0) Calcium Level 9.0 MG/DL (8.5-10.1) Alkaline Phosphatase 151 U/L (45-117) Aspartate Amino Transf (AST/SGOT) 26 U/L (15-37) Alanine Aminotransferase (ALT/SGPT) 30 U/L (12-78) Total Bilirubin 0.3 MG/DL (0.2-1.0) Sodium Level 138 MEQ/L (136-145) Potassium Level 4.2 MEQ/L (3.5-5.1) Chloride Level 95 MEQ/L (98-107) Carbon Dioxide Level 36.9 MEQ/L (21.0-32.0) Anion Gap 6 MEQ/L (5-15) Estimat Glomerular Filtration Rate 129 ML/MIN (>89) . Result Diagram: 04/11/18 0352 04/11/18 0352 Microbiology Microbiology Date/Time Source Procedure Growth Status 04/09/18 16:10 Blood Peripheral Aerobic Blood Culture - Preliminary NO GROWTH IN 2 DAYS Resulted 04/09/18 16:10 Blood Peripheral Anaerobic Blood Culture - Preliminary NO GROWTH IN 2 DAYS Resulted 04/09/18 16:00 Blood Peripheral Aerobic Blood Culture - Preliminary NO GROWTH IN 2 DAYS Resulted 04/09/18 16:00 Blood Peripheral Anaerobic Blood Culture - Preliminary NO GROWTH IN 2 DAYS Resulted . Imaging Last Impressions Chest X-Ray 04/11/18 0600 Signed Impressions: CONCLUSION: No appreciable change. . Procedures * posterolateral thoracotomy and localized decortication with biopsy of peel by Dr. Murdock. 04/05/18 Patient/Family Conference Present at Family Conference: Stepdaughter Virgie . Family Conference Time (mins): 50 Family Conference Location: Bedside, Consult Room Issues Discussed: * Palliative care role, purpose, approach * Additional medical, psychosocial, and spiritual history * Patients general health, functional status, and cognitive changes in the months leading up to the current hospitalization * Family understanding of the current medical problems * Family understanding of prognosis * Patients goals of care as best understood from advance directives and/or conversations and/or values * Current medical treatment options and benefits/burdens of those options * Likely scenarios comparing ongoing aggressive care with a transition to comfort measures only * Questions answered to the best of my ability * Palliative care contact information provided Spoke with family privately while patient slept. When patient awakened, I spoke with him with family present to review resuscitation status and living will. . . Assessment and Plan Disease Oriented Problem List: (1) Lung cancer Comment: Non small cell cancer -- primary thought to be lung. . (2) Empyema lung (3) Pneumonia (4) Anemia (5) Hypoalbuminemia (6) COPD (chronic obstructive pulmonary disease) (7) Rheumatoid arthritis (8) Hypoxemia (9) Seizure disorder Comment: No seizures since the . On regular dilantin. . Symptom Scale: (1) Pain 0-10 Scale: Unable to quantify Comment: Patient complains of pain at his recent surgical site. He also was having chest pain with deep breathing and cough even prior to his surgery. He would call this pain "severe. Pain from his rheumatoid arthritis was mild to moderate. He seemed to get worse with Humira. Arthritis pain was treated at home with ibuprofen. . (2) Dyspnea 0-10 Scale: 10 Comment: Dyspnea is secondary to his cancer; effusion; pneumonia, empyema. Dyspnea had been worsening. Patient is unable to quantify it but says it is "bad." He gets relief from the opiates and benzos and supplemental 02. . (3) Generalized weakness 0-10 Scale: Unable to quantify Pertinent Non-Medical Issues Psychosocial: Well supported by his -- Rochelle, There are 4 biological children and 3 step children. All are aware he is ill. Has been variably close to them. Spiritual: Not an important part of his life as an adult. In past, he took kids to Mandaeism yarsanism and enrolled them in Mandaeism schools for a while. Legal: Advance directives are complete. is health care surrogate. Ethical issues impacting care: Patient's capacity to make health care decisions waxes and wanes due to the severity of his illness, respiratory distress, and medications. Recommend shared decision making with his , even if patient is awake and alert. ,. Important Contacts Rochelle Ng (; health care surrogate) C: [phone]; H: . Prognosis Patient has declined substantially with multiple hospitalizations over the last year. He has suffered from recurrent pneumonia . It now appears that a malignancy may be at the route of his recurrent infections and empyema. He is now de-conditioned. His weight has dropped from the 200s down to 182 lbs. He is undernourished with a very low albumin level. Thoracic surgery could not completely address the empyema or successfully decorticate. Even if the patient had a malignancy that might respond to chemotherapy I am not sure he will get well enough to tolerate chemo. Family is doubtful he would want chemotherapy. He has grown tired of medical interventions and has been fighting going to doctors and getting lab work done. Should there be a transition to "comfort measures only" would likely come in days to weeks. He would be eligible for hospice services at such time that his goals become mostly comfort oriented. . Code Status: No Code Plan == Code Status: NO CODE -- Patient's living will had stated that he WOULD want cardiac resuscitation. However the Living Will was written in 09/2017. had additional conversations with him during his hospitalization in 2016 in which he changed his mind and wanted NOT to be resuscitated. Patient was awake and alert enough to discuss resuscitation wishes in front of me and his and stepdaughter on 04/11/18. He has confirmed that he does NOT want resuscitative efforts in his current condition. == Decision Making: Due to the extent of disease and need for sedating medications, patient's ability to make his own health care decisions waxes and wanes. the patient has designated his to be heatlh care surrogate. I recommend that be included in any health care decisions going forward as even if patient appears awake and alert he may not be able to recall much about this hospitalization, conversations with physicians, or prognosis. == Goals of medical treatment: After speaking with patient and family on 04/11, the goals are to continue aggressive goals short of resuscitation until family visits on 04/12/18. After the family visits, there is a good chance that they will want to forego further aggressive care, transition to comfort measures only, and consider hospice enrollment. Family indicates that even though family is coming to visit on 04/11/18, patient would prefer to be comfortable even it means he is more sleepy. == Symptoms: * Pain: Patient complains of pain at his recent surgical site. He also was having chest pain with deep breathing and cough even prior to his surgery. He would call this pain "severe. Pain from his rheumatoid arthritis was mild to moderate. He seemed to get worse with Humira. Arthritis pain was treated at home with ibuprofen. Given the more comfort oriented goals, I have increased opiates and benzos. * Dyspnea: Dyspnea is secondary to his cancer; effusion; pneumonia, empyema. Dyspnea had been worsening. Patient is unable to quantify it but says it is "bad." He gets relief from the opiates and benzos and supplemental 02. These comfort meds have been increased. == Case discussed by phone and in person with Dr. John Scott. == Family has watched patient suffer over the past many weeks. Patient has not wanted to seek help. Even if patient improved enough to consider chemotherapy, family does not think he would want to pursue that route. Patient took care of his second and watched her life prolonged needlessly when her quality was poor. He did not want that to ever happen to him. == Palliative care will continue to follow to assist with symptom management and to further clarify goals of medical treatment as the clinical course evolves. . Time Spent Total Floor Time (mins): 90 (Total floor time included chart review; patient exam; telephone and in-person discussions with Dr. Scott; collaboration with primary nurse; above referenced discussions with family and then with patient; writing orders.) Face to Face Time (mins): 15 >50% Counseling/Coord of Care: Yes Thank you for the opportunity to participate in the care of Mr. Ng. . Attestation To help prompt me to consider important information that might be impacting today's encounter and assessment, information from prior notes written by myself or my colleagues may have been "brought forward" into today's note. My signature on this note, however, is an attestation that I personally performed the exam, history, and/or decision-making noted today, and, unless otherwise indicated, the interactions with patient, family, and staff as well as the review of records all occurred today. I also attest that the listed assessment and stated plan reflect my best clinical judgment today based on the combination of historical information, prior notes, and today's exam/ interactions. When time spent is documented, it refers only to time spent today by the signer, or if indicated, combined time spent today by collaborating physician/nurse practitioner. . Brendan Spain MD April 11, 2018 19:32
[2018-04-11] MEDS: SODIUM CHLORIDE 0.9% FLUSH 10 ML FLUSH IV FLUSH SCH (20:54)
[2018-04-11] MEDS: PANTOPRAZOLE SOD 40 MG DELAYED RELEASE TAB PO SCH (20:54)
[2018-04-12] VITALS (8 sets, daily range): BP systolic 106–137; BP diastolic 64–90; PULSE 87–131; RESP 12–22; TEMP 97.8–97.9; O2SAT 93–97
[2018-04-12] MEDS: LORazepam 2 MG/ML VIAL IV PUSH PRN ×7 (01:08→17:27)
[2018-04-12] MEDS: VANCOMYCIN INJ 1,750 MG in SODIUM CHLORID 0.9% 500 ML INJ 500 ML IV SCH ×2 (03:03→15:00)
[2018-04-12] MEDS: PIPERACIL-TAZO 4.5 GM PREMIX 100 ML IV SCH ×3 (03:04→16:00)
[2018-04-12] MEDS: RESP: ALBUTEROL 2.5 MG/IPRATROPIUM 0.5 MG NEB (SCH) NEB ×3 (03:12→16:45)
[2018-04-12] MEDS: MORPHINE SULFATE 4 MG/ML INJ IV PUSH PRN ×6 (03:31→17:26)
[2018-04-12 04:27] LABS: AUTOMATED NEUTROPHIL # 20.1 TH/MM3 (1.8-7.7); BASOPHIL # 0.1 TH/MM3 (0-0.2); BASOPHIL % 0.6 % (0.0-2.0); HEMATOCRIT 29.3 % (39.0-51.0); HEMOGLOBIN 9.5 GM/DL (13.0-17.0); LYMPH % 1.6 % (9.0-44.0); LYMPHOCYTE # 0.4 TH/MM3 (1.0-4.8); MEAN CELL VOLUME 95.4 FL (80.0-100.0); MEAN CORPUSCULAR HGB CONC 32.5 % (32.0-36.0); MEAN PLATELET VOLUME 8.5 FL (7.0-11.0); MONO % 4.2 % (0.0-8.0); MONOCYTE # 0.9 TH/MM3 (0-0.9); NEUT % 93.6 % (16.0-70.0); PLATELET COUNT 323 TH/MM3 (150-450); RED BLOOD COUNT 3.08 MIL/MM3 (4.50-5.90); WHITE BLOOD COUNT 21.5 TH/MM3 (4.0-11.0)
[2018-04-12 04:30] LABS: ALBUMIN 1.5 GM/DL (3.4-5.0); AST (GOT) 22 U/L (15-37); BLOOD UREA NITROGEN 23 MG/DL (7-18); CALCIUM 8.4 MG/DL (8.5-10.1); CHLORIDE 99 MEQ/L (98-107); CREATININE 0.59 MG/DL (0.60-1.30); GLOMERULAR FILTRATION RATE 134 ML/MIN (>89); GLUCOSE,RANDOM 143 MG/DL (74-106); SODIUM (NA) 140 MEQ/L (136-145)
[2018-04-12 04:34] LABS: ALKALINE PHOSPHATASE 146 U/L (45-117); ALT (GPT) 28 U/L (12-78); TOTAL BILIRUBIN ADULT 0.5 MG/DL (0.2-1.0); TOTAL PROTEIN 6.5 GM/DL (6.4-8.2)
[2018-04-12] MEDS: PCA - TOTAL MG MORPHINE DELIVERED PER SHIFT SCH ×2 (06:00→13:07)
[2018-04-12] MEDS: methylPREDNISolone SOD SUCC 40 MG/1 ML VIAL IV PUSH SCH ×3 (06:06→16:46)
[2018-04-12] MEDS: DOCUSATE SODIUM 100 MG CAP PO SCH (08:15)
[2018-04-12] MEDS: METOPROLOL TARTRATE 50 MG TAB PO SCH (08:15)
[2018-04-12] MEDS: SODIUM CHLORIDE 0.9% FLUSH 10 ML FLUSH IV FLUSH SCH (08:15)
[2018-04-12] MEDS: ENOXAPARIN SODIUM 40 MG/0.4 ML SYRINGE SQ SCH (08:16)
[2018-04-12] MEDS: RESP: BUDESONIDE 0.5 MG/2 ML NEB NEB SCH (08:17)
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
[2018-04-12] MEDS: DILANTIN 100 MG PO SCH (16:23)
--- NOTE | 2018-04-12 17:14 | HHI.CCPN ---
Subjective Remarks/Hospital Course Hospital Course: 77-year-old gentleman with history of rheumatoid arthritis, COPD, seizure disorder, recurrent pneumonias and now organized empyema on the right side underwent posterolateral thoracotomy and localized decortication with biopsy of peel by Dr. Murdock. Postprocedure patient remains intubated and is admitted to critical care unit with postprocedure respiratory failure. The routine critical care consult was placed for ventilatory management. subjective: 04/06: clinically improving. follows commands. on SBT this AM. denies pain complaints. ROS limited by intubation, but appears to be negative. 04/07: Sitting up in chair breathing comfortably. Currently on partial nonrebreather oxygen saturation 98%, transition to 50% Ventimask with maintaining oxygen saturation above 94%. Chest tube with 135 mL output in 24 hours 04/09: Critical care reconsulted by Dr. Stfe Murdock for worsening respiratory status. Patient requiring 10 L facemask O2 and appears anxious. He is resting in bed currently at the time of my evaluation. He is slightly tachypneic and using accessory muscles of respiration. He had just received Lasix prior to my evaluation. 04/10: Breathing appears to be slightly improved. Below 100. Patient was started on antibiotics on 04/09 for suspected recurrent pneumonia in view of worsening leukocytosis with bandemia and toxic granules. 04/11: Breathing appears more labored. Received Ativan earlier for anxiety. Chest x-ray shows worsening right effusion. 04/12: Drowsy, on facemask. Labored respirations noted. Family and patient have elected for DNR status, eventual transition to comfort measures and hospice. Objective Vital Signs Date Time Temp Pulse Resp B/P (MAP) Pulse Ox O2 Delivery O2 Flow Rate FiO2 04/12/18 16:00 97.9 131 14 127/81 (96) 96 04/12/18 15:00 Partial Non-Rebreather 15.00 04/08/18 23:00 50 Intake and Output 04/12/18 04/12/18 04/13/18 08:00 16:00 00:00 Intake Total 675 ml Output Total 200 ml Balance 475 ml Result Diagram: 04/12/18 0340 04/12/18 0340 Imaging Last 48 hours Impressions Chest X-Ray 04/09/18 0500 Signed Impressions: CONCLUSION: No significant change patchy bilateral airspace opacities and small right pleur al effusion. Endotracheal tube out. Last 24 hours Impressions Chest X-Ray 04/05/18 2152 Signed Impressions: CONCLUSION: Chest X-Ray 04/05/18 0000 Signed Impressions: CONCLUSION: Clips in the left hilar region. Objective Remarks GENERAL: elderly male, laying in bed SKIN: Warm and dry. HEAD: Normocephalic. EYES: No scleral icterus. No injection or drainage. NECK: Supple, trachea midline. No JVD CARDIOVASCULAR: S1-S2 regular, no gallop or murmur RESPIRATORY: Air entry equal bilaterally no wheezes. crackles over right lung field noted. Using accessory muscles of respiration. GASTROINTESTINAL: Abdomen soft, non-tender, nondistended. MUSCULOSKELETAL: No cyanosis, or edema. NEURO EXAM: Drowsy, minimally arousable, moves all 4 extremities A/P Assessment and Plan Assessment: 77yM POD 7 s/p right thoracotomy for empyema. Extubated 04/06/2018 Post-operative respiratory failure - Extubated 04/06/18, on facemask O2 - i.s. and pulmonary toilet. EzPAP - DuoNeb's every 6 hours with albuterol every 2 hourly as needed Solu-Medrol 125 mg IV 1 and then 40 mg IV every 6 hourly on 04/11. Given Lasix on 04/09 to mobilize fluid per CT surgery however BNP not elevated. Suspect pneumonia as etiology for worsening respiratory failure with underlying malignancy and possible COPD exacerbation. - wean o2 for goal spo2 > 90% - CT to suction: management per CT surgery. - Echo with decreased LV function noted. Empyema s/p right thoracotomy and decortication 04/05 -Antibiotics stopped on 04/05. Patient on Levaquin and vancomycin perioperatively. Worsening leukocytosis with bandemia and toxic granulations noted on labs done on 04/09, in view of worsening respiratory status initiated empiric antibiotic coverage with IV Zosyn, vancomycin per pharmacy dosing. Blood cultures, UA and urine cultures ordered. ID consult cancelled as patient going to hospice -Status post decortication, cultures negative -Further management per CT surgeon COPD -DuoNeb scheduled and as needed --Solu-Medrol -Pulmicort GERD -Pantoprazole Seizure disorder -Dilantin History of DVT -Eliquis on hold for surgical procedures -Resume when okay with surgeon -On DVT prophylaxis with Lovenox. DVT GI prophylaxis -Loyd's and SCDs, Lovenox -Pantoprazole We will see how patient responds with diuretics and antibiotics. Awaiting 2D echo. BNP not elevated. Increasing leukocytosis indicates possible infection due to presence of bandemia and toxic granulations the patient has been on steroids. Patient has had recurrent pneumonias previously. Being followed by oncology for lung CA. 04/11: Discussed with Dr. Seven Murdock. Patient respiratory status has declined significantly and patient is at risk for intubation. Both of us had discussion with patient's family independently. Patient's tells me that he would not want intubation or CPR in this setting. She is requesting to talk to palliative care to discuss options including possible hospice. Patient made DNR status per discussion with patient's . Prognosis appears poor. 04/12: D/W Palliative care-Dr. pozo. Family electing for transfer to hospice with comfort measures only. Possible discharge to hospice facility this evening. Critical care will sign off. Please reconsult if needed Randall Scott MD April 12, 2018 17:14
--- NOTE | 2018-04-12 18:53 | HHI.HCPN ---
Reason for visit a. To assist with evaluation and management of symptoms including: dyspnea; pain; generalized weakness b. To assist medical decision maker(s) with: better understanding of current medical conditions; weighing benefits/burdens of medical treatment options; making medical treatment decisions. . Subjective/Interval History Patient stirs slightly to voice/exam at time of my visit -- does not awaken. Nurse reports patient becomes tachypnic, dypneic, agitated when opiates/benzos wear off and that he was requiring PRNs about every 2-3 hours over night. Family at bedside this AM. He has not awakened for them but he has not appeared uncomfortable to them. Final pathology still not available. I personally spoke with Dr. Guidry to discuss case. He indicated it was hard for him to advise family without knowing the final path. I explained the patient's deteriorating respiratory condition and his wishes not be intubated. . Family/friend interactions I had several meetings with the family over the course of the day. I spoke with and stepdaughter initially. They were more determined based on the patient's condition to transition him to comfort measures only. I returned by request of to speak with the patient's sons after they all arrived. I reviewed the patient's history leading up to the hospitalization, reviewed the hospital course, reviewed the options going forward, and discussed my understanding of the patient's goals and preferences as provided by family members. I answered questions. All were in agreement. Nurses called me back to floor later in the afternoon indicating that family had decided to move forward with hospice enrollment and transfer to a hospice care center bed. I reviewed the decision with family members, placed a hospice consult, and spoke with the hospice admission nurse. Recommended that the family visit the hospice care center which they agreed to do. Went back to floor to discuss case and answer questions when the two daughters finally arrived. . Advance Directives Living Will: Copy in medical record Health Care Surrogate: Copy in medical record Durable Power of College Teacher: Never completed Advance Directive Specifics Date completed: Living will and healthcare surrogate designation were completed in September 2017. . Health Care Surrogate(s): The patient has designated his , Rochelle, as his healthcare surrogate. . Documented care wishes: The patient's living will indicates he would not want life prolonging measure should he be found to have a terminal illness, end-stage condition, or persistent vegetative state. However, he has written a since then indicating he would want cardiac resuscitation. . Significant change in goals: Family requests that patient be enrolled with hospice and transferred to a hospice care center bed today. . Objective Vital Signs Date Time Temp Pulse Resp B/P (MAP) Pulse Ox O2 Delivery O2 Flow Rate FiO2 04/12/18 17:33 20 04/12/18 16:00 97.9 131 14 127/81 (96) 96 04/12/18 15:00 95 Partial Non-Rebreather 15.00 04/12/18 15:00 121 04/12/18 11:00 112 04/12/18 11:00 92 Partial Non-Rebreather 15.00 04/12/18 11:00 97.8 112 16 106/64 (78) 93 04/12/18 08:17 97 Partial Rebreather 15.00 04/12/18 07:00 97.9 96 12 114/73 (87) 97 04/12/18 07:00 96 Partial Non-Rebreather 15.00 04/12/18 07:00 96 04/12/18 03:14 96 Partial Non-Rebreather 15.00 04/12/18 03:14 97.9 89 22 137/90 (106) 96 04/12/18 03:14 87 04/11/18 23:13 98.0 88 24 124/83 (97) 98 04/11/18 23:13 91 04/11/18 23:13 98 Partial Non-Rebreather 15.00 04/11/18 22:08 98 Partial Rebreather 15.00 04/11/18 19:20 95 Partial Non-Rebreather 15.00 04/11/18 19:20 98.2 110 23 124/89 (101) 95 04/11/18 19:00 110 Intake & Output 04/12/18 04/12/18 07:00 19:00 Intake Total 775 ml Output Total 200 ml 200 ml Balance 575 ml -200 ml Intake Oral 75 ml IV Total 700 ml Output Urine Total 200 ml 200 ml # Voids 1 . Physical Exam CONSTITUTIONAL/GENERAL: Patient is lethargic, non-verbal, but not in respiratory distress in an ICU bed. TUBES/LINES/DRAINS: PICC line left upper arm; partial nonrebreather mask; right chest tube SKIN: Right upper back surgical wound. No jaundice, rashes, or lesions. Skin temperature appropriate. Not diaphoretic. EYES: Pupils equal and round. No scleral icterus. No injection or drainage. Fundi not examined. ENT: Nose without bleeding or purulent drainage. Throat without visible erythema , exudates, masses, or lesions. NECK: Trachea midline. . CARDIOVASCULAR: Occasional irregular beat. Otherwise without murmurs, gallops, or rubs. No JVD. Peripheral pulses symmetric but weak RESPIRATORY/CHEST: Symmetric respiratory effort. Right chest tube. Crackles heard greater on right. No audible wheezes. GASTROINTESTINAL: Abdomen soft, non-tender, nondistended. No hepato-splenomegaly , or palpable masses. No guarding. Bowel sounds present. GENITOURINARY: Without palpable bladder distension. MUSCULOSKELETAL: Extremities without clubbing, cyanosis, or edema. No mottling or clubbing. LYMPHATICS: Not examined NEUROLOGICAL: Lethargic. Stirs slightly to exam but does not awaken. PSYCHIATRIC: Unable to assess due to level of responsiveness. . . Diagnostic Tests Laboratory Laboratory Tests Test 04/10/18 08:46 04/11/18 03:14 04/11/18 03:52 04/12/18 03:40 White Blood Count 27.1 TH/MM3 (4.0-11.0) 22.5 TH/MM3 (4.0-11.0) 21.5 TH/MM3 (4.0-11.0) Red Blood Count 3.26 MIL/MM3 (4.50-5.90) 3.13 MIL/MM3 (4.50-5.90) 3.08 MIL/MM3 (4.50-5.90) Hemoglobin 10.0 GM/DL (13.0-17.0) 9.7 GM/DL (13.0-17.0) 9.5 GM/DL (13.0-17.0) Hematocrit 30.8 % (39.0-51.0) 29.4 % (39.0-51.0) 29.3 % (39.0-51.0) Mean Corpuscular Volume 94.4 FL (80.0-100.0) 94.1 FL (80.0-100.0) 95.4 FL (80.0-100.0) Mean Corpuscular Hemoglobin 30.8 PG (27.0-34.0) 31.0 PG (27.0-34.0) 31.0 PG (27.0-34.0) Mean Corpuscular Hemoglobin Concent 32.6 % (32.0-36.0) 33.0 % (32.0-36.0) 32.5 % (32.0-36.0) Red Cell Distribution Width 13.8 % (11.6-17.2) 13.8 % (11.6-17.2) 14.0 % (11.6-17.2) Platelet Count 276 TH/MM3 (150-450) 304 TH/MM3 (150-450) 323 TH/MM3 (150-450) Mean Platelet Volume 8.7 FL (7.0-11.0) 8.1 FL (7.0-11.0) 8.5 FL (7.0-11.0) Neutrophils (%) (Auto) 92.0 % (16.0-70.0) 90.0 % (16.0-70.0) 93.6 % (16.0-70.0) Lymphocytes (%) (Auto) 1.7 % (9.0-44.0) 3.7 % (9.0-44.0) 1.6 % (9.0-44.0) Monocytes (%) (Auto) 5.0 % (0.0-8.0) 5.7 % (0.0-8.0) 4.2 % (0.0-8.0) Eosinophils (%) (Auto) 0.9 % (0.0-4.0) 0.4 % (0.0-4.0) 0.0 % (0.0-4.0) Basophils (%) (Auto) 0.4 % (0.0-2.0) 0.2 % (0.0-2.0) 0.6 % (0.0-2.0) Neutrophils # (Auto) 25.0 TH/MM3 (1.8-7.7) 20.3 TH/MM3 (1.8-7.7) 20.1 TH/MM3 (1.8-7.7) Lymphocytes # (Auto) 0.4 TH/MM3 (1.0-4.8) 0.8 TH/MM3 (1.0-4.8) 0.4 TH/MM3 (1.0-4.8) Monocytes # (Auto) 1.4 TH/MM3 (0-0.9) 1.3 TH/MM3 (0-0.9) 0.9 TH/MM3 (0-0.9) Eosinophils # (Auto) 0.2 TH/MM3 (0-0.4) 0.1 TH/MM3 (0-0.4) 0.0 TH/MM3 (0-0.4) Basophils # (Auto) 0.1 TH/MM3 (0-0.2) 0.1 TH/MM3 (0-0.2) 0.1 TH/MM3 (0-0.2) CBC Comment AUTO DIFF DIFF FINAL DIFF FINAL Differential Total Cells Counted 100 Neutrophils % (Manual) 84 % (16-70) Band Neutrophils % 12 % (0-6) Monocytes % 3 % (0-8) Eosinophils % 1 % (0-4) Neutrophils # (Manual) 26.0 TH/MM3 (1.8-7.7) Differential Comment FINAL DIFF MANUAL Toxic Vacuolation PRESENT (NONE SEEN) Platelet Estimate NORMAL (NORMAL) Platelet Morphology Comment NORMAL (NORMAL) Blood Urea Nitrogen 26 MG/DL (7-18) 24 MG/DL (7-18) 23 MG/DL (7-18) Creatinine 0.72 MG/DL (0.60-1.30) 0.61 MG/DL (0.60-1.30) 0.59 MG/DL (0.60-1.30) Random Glucose 139 MG/DL (74-106) 110 MG/DL (74-106) 143 MG/DL (74-106) Total Protein 7.1 GM/DL (6.4-8.2) 6.7 GM/DL (6.4-8.2) 6.5 GM/DL (6.4-8.2) Albumin 1.8 GM/DL (3.4-5.0) 1.6 GM/DL (3.4-5.0) 1.5 GM/DL (3.4-5.0) Calcium Level 9.1 MG/DL (8.5-10.1) 9.0 MG/DL (8.5-10.1) 8.4 MG/DL (8.5-10.1) Alkaline Phosphatase 134 U/L (45-117) 151 U/L (45-117) 146 U/L (45-117) Aspartate Amino Transf (AST/SGOT) 21 U/L (15-37) 26 U/L (15-37) 22 U/L (15-37) Alanine Aminotransferase (ALT/SGPT) 25 U/L (12-78) 30 U/L (12-78) 28 U/L (12-78) Total Bilirubin 0.4 MG/DL (0.2-1.0) 0.3 MG/DL (0.2-1.0) 0.5 MG/DL (0.2-1.0) Sodium Level 135 MEQ/L (136-145) 138 MEQ/L (136-145) 140 MEQ/L (136-145) Potassium Level 4.5 MEQ/L (3.5-5.1) 4.2 MEQ/L (3.5-5.1) 4.1 MEQ/L (3.5-5.1) Chloride Level 94 MEQ/L (98-107) 95 MEQ/L (98-107) 99 MEQ/L (98-107) Carbon Dioxide Level 33.5 MEQ/L (21.0-32.0) 36.9 MEQ/L (21.0-32.0) 34.0 MEQ/L (21.0-32.0) Anion Gap 8 MEQ/L (5-15) 6 MEQ/L (5-15) 7 MEQ/L (5-15) Estimat Glomerular Filtration Rate 106 ML/MIN (>89) 129 ML/MIN (>89) 134 ML/MIN (>89) Vancomycin Level Trough 9.8 MCG/ML (5.0-10.0) . Result Diagram: 04/12/18 0340 04/12/18 0340 Microbiology Microbiology Date/Time Source Procedure Growth Status 04/09/18 16:10 Blood Peripheral Aerobic Blood Culture - Preliminary NO GROWTH IN 3 DAYS Resulted 04/09/18 16:10 Blood Peripheral Anaerobic Blood Culture - Preliminary NO GROWTH IN 3 DAYS Resulted 04/05/18 14:30 Fluid Other Fungal Smear - Final NO FUNGAL ELEMENTS SEEN. Resulted 04/05/18 14:30 Fluid Other Fungal Culture - Preliminary NO GROWTH IN 1 WEEK Resulted . Imaging Last Impressions Chest X-Ray 04/11/18 0600 Signed Impressions: CONCLUSION: No appreciable change. . Procedures * posterolateral thoracotomy and localized decortication with biopsy of peel by Dr. Murdock. 04/05/18 . Assessment and Plan Disease Oriented Problem List: (1) Lung cancer Comment: Non small cell cancer -- primary thought to be lung. . (2) Empyema lung (3) Pneumonia (4) Anemia (5) Hypoalbuminemia (6) COPD (chronic obstructive pulmonary disease) (7) Rheumatoid arthritis (8) Hypoxemia (9) Seizure disorder Comment: No seizures since the . On regular dilantin. . Symptom Scale: (1) Pain 0-10 Scale: Unable to quantify Comment: Patient complained of pain at his recent surgical site. He also was having chest pain with deep breathing and cough even prior to his surgery. He would call this pain "severe. Pain from his rheumatoid arthritis was mild to moderate. He seemed to get worse with Humira. Arthritis pain was treated at home with ibuprofen. . (2) Dyspnea 0-10 Scale: 10 Comment: Dyspnea is secondary to his cancer; effusion; pneumonia, empyema. Dyspnea had been worsening. Patient has been unable to quantify it but had been saying it is "bad." He gets relief from the opiates and benzos and supplemental 02. . (3) Generalized weakness 0-10 Scale: Unable to quantify Pertinent Non-Medical Issues Psychosocial: Well supported by his -- Rochelle, There are 4 biological children and 3 step children. All are aware he is ill. Has been variably close to them. Spiritual: Not an important part of his life as an adult. In past, he took kids to [employer] and enrolled them in [employer] schools for a while. Legal: Advance directives are complete. is health care surrogate. Ethical issues impacting care: Patient's capacity to make health care decisions waxes and wanes due to the severity of his illness, respiratory distress, and medications. Recommend shared decision making with his , even if patient is awake and alert. ,. Important Contacts Rochelle Ng (; health care surrogate) C: [phone]; H: . Prognosis Patient has declined substantially with multiple hospitalizations over the last year. He has suffered from recurrent pneumonia . It now appears that a malignancy may be at the root of his recurrent infections and empyema. He is now de-conditioned. His weight has dropped from the 200s down to 182 lbs. He is undernourished with a very low albumin level. Thoracic surgery could not completely address the empyema or successfully decorticate. Even if the patient had a malignancy that might respond to chemotherapy I am not sure he will get well enough to tolerate chemo. Family is doubtful he would want chemotherapy. He has grown tired of medical interventions and has been fighting going to doctors and getting lab work done. Should there be a transition to "comfort measures only" would likely come in days to weeks. He would be eligible for hospice services at such time that his goals become mostly comfort oriented. . Code Status: No Code Plan == Code Status: NO CODE -- Patient's living will had stated that he WOULD want cardiac resuscitation. However the Living Will was written in 09/2017. had additional conversations with him during his hospitalization in 2016 in which he changed his mind and wanted NOT to be resuscitated. Patient was awake and alert enough to discuss resuscitation wishes in front of me and his and stepdaughter on 04/11/18. He has confirmed that he does NOT want resuscitative efforts in his current condition. == Decision Making: Due to the extent of disease and need for sedating medications, patient's ability to make his own health care decisions waxes and wanes. the patient has designated his to be health care surrogate. I recommend that be included in any health care decisions going forward as even if patient appears awake and alert he may not be able to recall much about this hospitalization, conversations with physicians, or prognosis. == Goals of medical treatment: Now that family has all had an opportunity to visit, health care surrogate feels very strongly that patient would want to forego further aggressive care; transition fully to "comfort measures only," enroll with hospice, and transfer to a hospice care center facility. == Symptoms: * Pain: Patient complained of pain at his recent surgical site. He also was having chest pain with deep breathing and cough even prior to his surgery. He would call this pain "severe. Pain from his rheumatoid arthritis was mild to moderate. He seemed to get worse with Humira. Arthritis pain was treated at home with ibuprofen. He is currently responding to the increased opiates and benzos but needing them frequently. * Dyspnea: Dyspnea is secondary to his cancer; effusion; pneumonia, empyema. Dyspnea had been worsening. Patient is unable to quantify it but says it is "bad." He gets relief from the opiates and benzos and supplemental 02. == Case discussed by phone with Dr. Lopez. Case discussed in person with Cardio-thoracic surgery AUDIO VISUAL AIDS DIRECTOR. Case discussed by phone and in person with hospice admission nurse. == Hospice consult placed per family request. I called the hospice care center to explain the case and arrange for family to see the facility. . . Time Spent Total Floor Time (mins): 50 (Total floor time included chart review; patient exam; discussions with other providers as documented; above referenced discussions with family members; discussions with hospice team; collaboration with primary nurse; documentation.) Face to Face Time (mins): 15 >50% Counseling/Coord of Care: Yes Attestation To help prompt me to consider important information that might be impacting today's encounter and assessment, information from prior notes written by myself or my colleagues may have been "brought forward" into today's note. My signature on this note, however, is an attestation that I personally performed the exam, history, and/or decision-making noted today, and, unless otherwise indicated, the interactions with patient, family, and staff as well as the review of records all occurred today. I also attest that the listed assessment and stated plan reflect my best clinical judgment today based on the combination of historical information, prior notes, and today's exam/ interactions. When time spent is documented, it refers only to time spent today by the signer, or if indicated, combined time spent today by collaborating physician/nurse practitioner. . Brendan Spain MD April 12, 2018 18:53
[2018-04-13] MEDS ORDERED: PHARMACY ORDERED LAB ONE (02:45)
== END 2018-04-12 19:40 | disposition hospice, inpatient (51) | DRG 163 ==
LOC: HCPC 20:35 → N07B 04-05 00:15 → HCVI 04-05 18:45
PROVIDERS: ADMIT Thoracic Surgery (Cardiothoracic Vascular Surgery); ATTEND Thoracic Surgery (Cardiothoracic Vascular Surgery)
PROC: 5A1935Z Respiratory Ventilation, Less than 24 Consecutive Hours (ICD-10-PCS; 2018-04-05)
PROC: 0W990ZX Drainage of Right Pleural Cavity, Open Approach, Diagnostic (ICD-10-PCS; 2018-04-05)
PROC: 3E0T3BZ Introduction of Anesthetic Agent into Peripheral Nerves and Plexi, Percutaneous Approach (ICD-10-PCS; 2018-04-05)
PROC: 0BCN0ZZ Extirpation of Matter from Right Pleura, Open Approach (ICD-10-PCS; 2018-04-05)
PROC: 0BH17EZ Insertion of Endotracheal Airway into Trachea, Via Natural or Artificial Opening (ICD-10-PCS; 2018-04-05)
PROC: 0BNK0ZZ Release Right Lung, Open Approach (ICD-10-PCS; principal; 2018-04-05 13:18)
DX: J86.9 Pyothorax without fistula (principal); J95.821 Acute postprocedural respiratory failure; J18.9 Pneumonia, unspecified organism; J91.0 Malignant pleural effusion; E87.2 Acidosis; J44.0 Chronic obstructive pulmonary disease with (acute) lower respiratory infection; J94.2 Hemothorax; C34.91 Malignant neoplasm of unspecified part of right bronchus or lung; D64.9 Anemia, unspecified; M06.9 Rheumatoid arthritis, unspecified; Z99.81 Dependence on supplemental oxygen; G40.909 Epilepsy, unspecified, not intractable, without status epilepticus; Z66 Do not resuscitate; K21.9 Gastro-esophageal reflux disease without esophagitis; Z77.090 Contact with and (suspected) exposure to asbestos; E88.09 Other disorders of plasma-protein metabolism, not elsewhere classified; F41.9 Anxiety disorder, unspecified; Z51.5 Encounter for palliative care; Z87.01 Personal history of pneumonia (recurrent); Z86.718 Personal history of other venous thrombosis and embolism; Z80.7 Family history of other malignant neoplasms of lymphoid, hematopoietic and related tissues; Z87.891 Personal history of nicotine dependence; Z80.1 Family history of malignant neoplasm of trachea, bronchus and lung; Z86.73 Personal history of transient ischemic attack (TIA), and cerebral infarction without residual deficits
CPT/HCPCS: 36600; 71045; 71046; 80048; 80053; 80202; 81001; 82805; 83735; 83880; 85007; 85025; 85027; 85610; 86850; 86900; 86901; 86920; 87015; 87040; 87070; 87102; 87116; 87205; 87206; 88305; 88331; 88341; 88342; 93005; 93306; 94002; 94003; 94150; 94640; 94664; C9290; J0131; J0330; J0692; J1100; J1644; J1650; J1720; J1885; J1940; J1956; J2060; J2270; J2370; J2405; J2543; J2920; J2930; J3010; J3370; J3475; J7040; J7050; J7060; J7512; J7611; J7613; J7626